=== PATIENT | male | born 1955 ===

== ENCOUNTER 2016-11-06 00:33 | Inpatient (IN) | payer MEDICAID ==
[2016-11-06 00:33] VITALS: BMI 23.5
[2016-11-06] MEDS ORDERED: Vancomycin 1 GM in Sodium Chloride 0.9% 100 ML IVPB STA (01:20)
[2016-11-06] MEDS ORDERED: Piperacillin/Tazobact 3.375 GM in Sodium Chloride 0.9% 100 ML IVPB STA (01:20)
--- NOTE | 2016-11-06 01:43 | ED PDOC ---
Upper Extremity Pain/Injury Time Seen by Provider: 11/06/16 01:13 Chief Complaint (Nursing): Upper Extremity Problem/Injury Chief Complaint (Provider): left arm pain History Per: Patient History/Exam Limitations: no limitations Onset/Duration Of Symptoms: Days (4) Current Symptoms Are (Timing): Still Present Additional Complaint(s): 61yo male with PMHx including HIV, IVDA, heroin abuse, SVT presents to the ED with c/o left arm pain x 4 days. Patient reports left forearm pain and swelling after injecting heroin into the site. States he usually snorts heroin. Denies fever, chills, n/v/d, cough, SOB, chest pain. Past Medical History Reviewed: Historical Data, Nursing Documentation, Vital Signs Vital Signs: Last Vital Signs Temp 98.7 F 11/06/16 00:51 Pulse 69 11/06/16 00:51 Resp 17 11/06/16 00:51 BP 141/85 11/06/16 00:51 Pulse Ox 98 11/06/16 00:51 - Medical History PMH: Hepatitis (C w/liver failure), Hiatal Hernia (right inguinal), HIV Denies: Diabetes, HTN, Hypercholesterolemia, Chronic Kidney Disease, Seizures , Sexually Transmitted Disease Other PMH: IVDA, heroin abuse, SVT - Surgical History Surgical History: No Surg Hx - Family History Family History: States: No Known Family Hx - Social History Current smoker - smoking cessation education provided: Yes Alcohol: > 2 Drinks/Day Drugs: Other (heroin ) - Immunization History Hx Tetanus Toxoid Vaccination: No Hx Influenza Vaccination: No Hx Pneumococcal Vaccination: No - Home Medications Home Medications: Ambulatory Orders Medication Instructions Recorded Efavirenz/Emtricitabine/Teno 1 tab PO DAILY 09/09/16 [Atripla 600 MG-200 MG-300 MG] - Allergies Allergies/Adverse Reactions: Allergies Allergy/AdvReac Type Severity Reaction Status Date / Time No Known Allergies Allergy Verified 10/02/16 10:06 Review of Systems ROS Statement: Except As Marked, All Systems Reviewed And Found Negative Constitutional: Negative for: Fever, Chills Cardiovascular: Negative for: Chest Pain Respiratory: Negative for: Cough, Shortness of Breath Gastrointestinal: Negative for: Nausea, Vomiting, Diarrhea Musculoskeletal: Positive for: Arm Pain (left ), Other (left arm swelling ) Physical Exam - Reviewed Nursing Documentation Reviewed: Yes Vital Signs Reviewed: Yes - Physical Exam Appears: Positive for: No Acute Distress. Negative for: Well (cachectic ) Head Exam: Negative for: NORMAL INSPECTION (bitemporal wasting ) Skin: Positive for: Warm, Dry Eye Exam: Positive for: Normal appearance ENT: Positive for: Normal ENT Inspection Neck: Positive for: Normal, Painless ROM, Supple Cardiovascular/Chest: Positive for: Regular Rate, Rhythm. Negative for: Murmur , Tachycardia Respiratory: Positive for: Normal Breath Sounds. Negative for: Wheezing, Respiratory Distress Gastrointestinal/Abdominal: Positive for: Normal Exam, Bowel Sounds, Soft. Negative for: Tenderness Back: Positive for: Normal Inspection Extremity: Positive for: Normal ROM, Other (left forearm: 3cm round organized abscess to volar surface that is red w/ surrounding erythema and warm and tender to palpation and indurated ). Negative for: Deformity Lymphatic: Positive for: Other (epitrochlear lymph nodes ) Neurologic/Psych: Positive for: Alert, Oriented - Laboratory Results Result Diagrams: 11/06/16 03:06 11/06/16 05:00 - ECG O2 Sat by Pulse Oximetry: 98 Pulse Ox Interpretation: Normal (RA) Medical Decision Making Medical Decision Makin: Impression: 61yo male w/ abscess and cellulitis in setting of IVDA and HIV Plan: EKG Labs Vancomycin 1gm IVPB, Zosyn 3.375gm IVPB, IVF XR left forearm, CXR blood culture Patient will be admitted for further treatment and stabilization. Case referred to family practice resident on-call. Dx: abscess/cellulitis of left forearm, HIV, IVDA fair 0228: CXR and XR left forearm show no acute disease. Scribe Attestation: Documented by Brett Mercedes acting as a scribe for Ayo Moura MD. Provider Scribe Attestation: All medical record entries made by the Scribe were at my direction and personally dictated by me. I have reviewed the chart and agree that the record accurately reflects my personal performance of the history, physical exam, medical decision making, and the department course for this patient. I have also personally directed, reviewed, and agree with the discharge instructions and disposition. Disposition - Clinical Impression Clinical Impression: Abscess of left forearm, Cellulitis of forearm, left, IV drug abuse, HIV ( human immunodeficiency virus infection) - Patient ED Disposition Is Patient to be Admitted: Yes Discussed With : Te Tineo - Disposition Disposition Time: 01:21 Condition: FAIR
[2016-11-06] MEDS ORDERED: Vancomycin 1 g Inj ONE (03:01)
[2016-11-06 03:15] LABS: BASO # 0.1 K/uL (0.0-0.2); BASO % 1.1 % (0.0-2.0); EOS # 0.2 K/uL (0.0-0.7); EOS % 2.3 % (0.0-4.0); HEMATOCRIT 39.6 % (35.0-51.0); LYMPH # 1.9 K/uL (1.0-4.3); LYMPH % 23.2 % (20.0-40.0); MEAN CELL VOLUME 84.9 fl (80.0-94.0); MEAN CORPUSCULAR HEMOGLOBIN 29.6 pg (27.0-31.0); MEAN CORPUSCULAR HGB CONC 34.8 g/dL (33.0-37.0); MEAN PLATELET VOLUME 8.6 fl (7.2-11.7); MONO # 0.7 K/uL (0.0-0.8); MONO % 8.5 % (0.0-10.0); NEUT # 5.4 K/uL (1.8-7.0); NEUT % 64.9 % (50.0-75.0); RED CELL DISTRIBUTION WIDTH 13.3 % (11.5-14.5); WHITE BLOOD COUNT 8.3 K/uL (4.8-10.8)
[2016-11-06 03:40] LABS: PARTIAL THROMBOPLASTIN TIME 28.3 SECONDS (23.3-32.5)
--- NOTE | 2016-11-06 04:16 | CP.PCM.HP ---
History of Present Illness - History of Present Illness History of Present Illness: 61 yo M w PMHx of HIV, IV Drug Abuse, Heroin abuse, HTN, and Hep C is admitted for left forearm pain w worsening abscess for four days. Despite usually snorting heroin, pt instead injected heroin into his left forearm 4 days prior to this hospital admission. Pt c/o of sharp pain that is localized to injection site, with increasing inflammation of previously mentioned injection site. However, pt denies any red gallardo leading proximally from said site. Otherwise, pt denies f/c/n/v/d/c, headaches, dizziness, chest pain, sob, dyspnea, abdominal pain, hematuria, dysuria, or other myalgias. PMD: Dr Hays As per eCW chart: PMHx: HIV February- CD4: 308 (L), CD4% 27(L), Chronic Hep C, HTN, LEFT forearm cellulitis (Sep) from IVDA, SVT (Sep) from IVDA PSHx: None Meds: Atripla 600-200-300, Vasotec 5 Allergies: NKDA FHx: None contributory SHx: Homeless, Frequent illicit drug abuse ED Course: -CBC -CMP -CXR -EKG -etoh Serum -Drug Screen -Lactic Acid -PT/INR/PTT -Blood Cx -Left Forearm XR Present on Admission - Present on Admission Any Indicators Present on Admission: No History of DVT/PE: No History of Uncontrolled Diabetes: No Urinary Catheter: No Decubitus Ulcer Present: No Review of Systems - Review of Systems Review of Systems: see HPI Past Patient History - Infectious Disease Hx of Infectious Diseases: None - Past Medical History & Family History Past Medical History?: Yes - Past Social History Smoking Status: Current Some Days Smoker - CARDIAC Hx Hypercholesterolemia: No Hx Hypertension: No - PULMONARY Hx Respiratory Disorders: No - NEUROLOGICAL Hx Seizures: No - HEENT Hx HEENT Problems: No - RENAL Hx Chronic Kidney Disease: No - ENDOCRINE/METABOLIC Hx Endocrine Disorders: No - HEMATOLOGICAL/ONCOLOGICAL Hx Human Immunodeficiency Virus (HIV): Yes - INTEGUMENTARY Hx Dermatological Problems: No - MUSCULOSKELETAL/RHEUMATOLOGICAL Hx Musculoskeletal Disorders: No - GASTROINTESTINAL Hx Gastrointestinal Disorders: No Hx Liver Failure: (Hepatitis C) - GENITOURINARY/GYNECOLOGICAL Hx Sexually Transmitted Disorders: No - PSYCHIATRIC Hx Psychophysiologic Disorder: Yes (Denies) Hx Substance Use: Yes (heroin, cocaine) - SURGICAL HISTORY Hx Surgeries: No - ANESTHESIA Hx Anesthesia: No Hx Anesthesia Reactions: No Hx Malignant Hyperthermia: No Meds Allergies/Adverse Reactions: Allergies Allergy/AdvReac Type Severity Reaction Status Date / Time No Known Allergies Allergy Verified 10/02/16 10:06 Physical Exam - Constitutional Appears: No Acute Distress, Unkempt - Head Exam Head Exam: ATRAUMATIC, NORMAL INSPECTION - Eye Exam Eye Exam: EOMI, Normal appearance - ENT Exam ENT Exam: Mucous Membranes Dry - Neck Exam Neck exam: Positive for: Full Rom. Negative for: Tenderness - Respiratory Exam Respiratory Exam: Clear to Auscultation Bilateral, NORMAL BREATHING PATTERN. absent: Rales, Wheezes - Cardiovascular Exam Cardiovascular Exam: REGULAR RHYTHM. absent: Irregular Rhythm - GI/Abdominal Exam GI & Abdominal Exam: Soft. absent: Tenderness - Extremities Exam Extremities exam: Negative for: calf tenderness Additional comments: LUE: 3-4cm organized, circular, mass/abscess w surrounding erythema; mass/ absces warm and tender to palpation - Neurological Exam Neurological exam: Alert, Oriented x3 - Skin Skin Exam: Dry, Intact, Warm Results - Vital Signs Recent Vital Signs: Last Vital Signs Temp 98.7 F 11/06/16 00:51 Pulse 69 11/06/16 00:51 Resp 17 11/06/16 00:51 BP 141/85 11/06/16 00:51 Pulse Ox 98 11/06/16 02:29 - Labs Result Diagrams: 11/06/16 03:06 11/06/16 05:00 Labs: Laboratory Results - last 24 hr 11/06/16 03:06 WBC 8.3 RBC 4.67 Hgb 13.8 Hct 39.6 MCV 84.9 MCH 29.6 MCHC 34.8 RDW 13.3 Plt Count 169 MPV 8.6 Neut % (Auto) 64.9 Lymph % (Auto) 23.2 [place] % (Auto) 8.5 Eos % (Auto) 2.3 Baso % (Auto) 1.1 Neut # 5.4 Lymph # 1.9 [place] # 0.7 Eos # 0.2 Baso # 0.1 PT 10.9 INR 1.05 APTT 28.3 Lactic Acid 0.6 L Alcohol, Quantitative < 10 Assessment & Plan - Assessment and Plan (Free Text) Plan: 61 yo M w PMHx of HIV, IV Drug Abuse, Heroin abuse, HTN, and Hep C is admitted for left forearm pain w worsening abscess for four days 1) Left forearm pain w abscess in setting of HIV -Motrin 600mg PO Q8H PRN Mild Pain -Vanco 1gm IVPB STAT x1 @ 121am --Next scheduled Vanco 1gm IVPB Q12H at 1320 -Zosyn 3.375gm IVPB STAT x1 @ 121am --Next scheduled Zosyn 3.375gm IVPB Q6H at 0730 -f/u Left Forearm XR -f/u ID Consult -f/u CMP -f/u Vanco Trough for Thurs @ Noon 2) h/o substance abuse -h/o IV heroin, cocaine, h/o 2-3 drinks/day -?reliability, will order Banana Bag in case he is incorrect about his etoh consumption -etoh screen negative -f/u for withdrawals, will re-evaluate need for PRN medications 3) HIV, not AIDS -Last CD4: 308 in February -Atripla 600-200-300 -f/u CD4 -f/u Viral Load 4) Chronic Hep C -Last Viral Load '15: 838,790 -f/u Viral Load -f/u ID Consult 5) HTN -Currently Normotensive -Vasotec 5mg PO Daily HELD, will reconsider if BPs rise 6) DVT Prophylaxis -Lovenox 40mg SC Daily at 9pm [facility]
[2016-11-06] MEDS ORDERED: Multivitamin (MVI) 10 ML, Thiamine 100 MG, Folic Acid 1 MG in Sodium Chloride 0.9% 1,00... IV ONE (04:33)
[2016-11-06 05:14] LABS: ALB/GLOB RATIO 1.1 (1.0-2.1); ALKALINE PHOSPHATASE 73 U/L (38-126); ALT/SGPT 36 U/L (21-72); AST/SGOT 41 U/L (17-59); BILIRUBIN,TOTAL 0.4 mg/dl (0.2-1.3); BLOOD UREA NITROGEN 20 mg/dl (9-20); CALCIUM 8.5 mg/dL (8.4-10.2); CARBON DIOXIDE 29 mmol/L (22-30); CHLORIDE 102 mmol/L (98-107); GFR AFRICAN-AMERICAN > 60; GLUCOSE,RANDOM 96 mg/dL (75-110); POTASSIUM 3.7 MMOL/L (3.6-5.0); SODIUM 143 mmol/l (132-148); TOTAL PROTEIN 7.2 G/DL (6.3-8.2)
[2016-11-06] MEDS: Piperacillin/Tazobact 3.375 GM in Sodium Chloride 0.9% 100 ML IVPB SCH ×3 (06:01→18:04)
[2016-11-06] MEDS: Bacitracin 500 Units/gm Oint Foilpak UD TOP SCH ×3 (09:00→16:28)
[2016-11-06] MEDS ORDERED: Patient's Own Med (Efavirenz/Emtricitabine/Teno [Atripla 600 Mg-200 Mg-300 Mg] 1 TAB) PO SCH (09:00)
--- NOTE | 2016-11-06 13:03 | RAD ---
HISTORY: admit COMPARISON: No prior. TECHNIQUE: Chest PA and lateral FINDINGS: LUNGS: The lungs are well inflated and clear. PLEURA: No significant pleural effusion identified. No pneumothorax apparent. CARDIOVASCULAR: Normal. OSSEOUS STRUCTURES: No significant abnormalities. VISUALIZED UPPER ABDOMEN: Normal. OTHER FINDINGS: None. IMPRESSION: No active pulmonary disease.
--- NOTE | 2016-11-06 13:28 | CP.PCM.CON ---
History of Present Illness - History of Present Illness History of Present Illness: Infectious Disease Consultation Note- ASked to see this patietn at the request of family practice team. HPI- Pt. is a 61 y/o homeless male with h/o HIV, Hep C, IVDU , HTN who is admitted for left arm pain, redness, swelling after he injected IV drugs 4 days ago. He denies any discharge from the site. He states the swelling has decreased since reeiving the IV abx here. He also explains he has had cellulitis /abscess in past in same arm from prior IV injections. He denies any fever or chills. PMD: Dr Hays As per eCW chart: PMHx: HIV February- CD4: 308 (L), CD4% 27(L), Chronic Hep C, HTN, LEFT forearm cellulitis (Sep) from IVDA, SVT (Sep) from IVDA PSHx: None Meds: Atripla 600-200-300, Vasotec 5 Allergies: NKDA FHx: None contributory SHx: Homeless, Frequent illicit drug abuse Review of Systems - Review of Systems Review of Systems: ROS- denies any fever or chills, denies any PANDA, denies any cough, denies any sob, denies any chest pain, denies any abd. pain, denies any n/v, denies any dysurea , denies any diarrhea left arm swelling, redness pain for past 4 days post IVDI, denies any discharge Past Patient History - Infectious Disease Hx of Infectious Diseases: None - Past Medical History & Family History Past Medical History?: Yes - Past Social History Alcohol: > 2 Drinks/Day Drugs: Other (heroin ) Home Situation {Lives}: Homeless - CARDIAC Hx Hypercholesterolemia: No Hx Hypertension: No - PULMONARY Hx Respiratory Disorders: No - NEUROLOGICAL Hx Seizures: No - HEENT Hx HEENT Problems: No - RENAL Hx Chronic Kidney Disease: No - ENDOCRINE/METABOLIC Hx Endocrine Disorders: No - HEMATOLOGICAL/ONCOLOGICAL Hx Hepatitis C: Yes Hx Human Immunodeficiency Virus (HIV): Yes - INTEGUMENTARY Hx Dermatological Problems: No - MUSCULOSKELETAL/RHEUMATOLOGICAL Hx Musculoskeletal Disorders: No - GASTROINTESTINAL Hx Gastrointestinal Disorders: No Hx Liver Failure: (Hepatitis C) - GENITOURINARY/GYNECOLOGICAL Hx Sexually Transmitted Disorders: No - PSYCHIATRIC Hx Psychophysiologic Disorder: Yes (Denies) Hx Substance Use: Yes (heroin, cocaine) - SURGICAL HISTORY Hx Surgeries: No - ANESTHESIA Hx Anesthesia: No Hx Anesthesia Reactions: No Hx Malignant Hyperthermia: No Meds Allergies/Adverse Reactions: Allergies Allergy/AdvReac Type Severity Reaction Status Date / Time No Known Allergies Allergy Verified 10/02/16 10:06 - Medications Medications: Current Medications Bacitracin (Bacitracin) 1 ea TOP TID [facility] Efavirenz (Sustiva) 600 mg PO DAILY [facility] Emtricitabine/Tenofovir (Truvada 200 Mg-300 Mg) 1 tab PO DAILY [facility] Enoxaparin Sodium (Lovenox) 40 mg SC Q24H JOAN PRN Reason: Protocol Vancomycin HCl 1 gm/ Sodium (Chloride) 250 mls @ 166.667 mls/hr IVPB Q12H JOAN Piperacillin Sod/Tazobactam (Sod 3.375 gm/ Sodium Chloride) 100 mls @ 100 mls/ hr IVPB Q6H [facility] Last Admin: 11/06/16 12:39 Dose: 100 mls/hr Ibuprofen (Motrin Tab) 600 mg PO Q8 PRN PRN Reason: Pain, Mild (1-3) Physical Exam - Constitutional Appears: No Acute Distress - Head Exam Head Exam: ATRAUMATIC - Eye Exam Eye Exam: EOMI, PERRL - Neck Exam Neck exam: Positive for: Full Rom - Respiratory Exam Respiratory Exam: Clear to Auscultation Bilateral, NORMAL BREATHING PATTERN - Cardiovascular Exam Cardiovascular Exam: RRR, +S1, +S2 - GI/Abdominal Exam GI & Abdominal Exam: Normal Bowel Sounds, Soft Additional comments: NT, ND - Extremities Exam Additional comments: left mid forearm with area of induration about 4 x 3 cm, slight erythema, not very warm to touch no discharge tender to touch no fluctuation ( hard to touch). - Neurological Exam Neurological exam: Alert, Oriented x3 Results - Vital Signs Recent Vital Signs: Last Vital Signs Temp 98.1 F 11/06/16 08:52 Pulse 65 11/06/16 08:52 Resp 20 11/06/16 08:52 BP 149/78 11/06/16 08:52 Pulse Ox 97 11/06/16 08:52 - Labs Result Diagrams: 11/06/16 03:06 11/06/16 05:00 Labs: Laboratory Results - last 24 hr 11/06/16 11/06/16 03:06 05:00 WBC 8.3 RBC 4.67 Hgb 13.8 Hct 39.6 MCV 84.9 MCH 29.6 MCHC 34.8 RDW 13.3 Plt Count 169 MPV 8.6 Neut % (Auto) 64.9 Lymph % (Auto) 23.2 [place] % (Auto) 8.5 Eos % (Auto) 2.3 Baso % (Auto) 1.1 Neut # 5.4 Lymph # 1.9 [place] # 0.7 Eos # 0.2 Baso # 0.1 PT 10.9 INR 1.05 APTT 28.3 Sodium 143 Potassium 3.7 Chloride 102 Carbon Dioxide 29 Anion Gap 16 BUN 20 Creatinine 0.8 Est GFR ( Amer) > 60 Est GFR (Non-Af Amer) > 60 Random Glucose 96 Lactic Acid 0.6 L Calcium 8.5 Total Bilirubin 0.4 AST 41 ALT 36 Alkaline Phosphatase 73 Total Protein 7.2 Albumin 3.8 Globulin 3.4 Albumin/Globulin Ratio 1.1 Alcohol, Quantitative < 10 Microbiology 02/11/16 19:00 Blood Blood Culture - Final 02/11/16 19:00 Blood Gram Stain - Final NO GROWTH AFTER 5 DAYS TEST NOT PERFORMED 02/11/16 18:30 Blood Blood Culture - Final 02/11/16 18:30 Blood Gram Stain - Final NO GROWTH AFTER 5 DAYS TEST NOT PERFORMED 02/04/16 10:55 Blood Blood Culture - Final 02/04/16 10:55 Blood Gram Stain - Final NO GROWTH AFTER 5 DAYS TEST NOT PERFORMED 11/12/15 Unknown Abscess - Forearm Gram Stain - Final 11/12/15 Unknown Abscess - Forearm Wound Culture - Final Strep Intermedius/Milleri 09/09/16 00:28 Blood-Venous Blood Culture - Final 09/09/16 00:28 Blood-Venous Gram Stain - Final NO GROWTH AFTER 5 DAYS TEST NOT PERFORMED 09/09/16 00:28 Blood-Venous Blood Culture - Final 09/09/16 00:28 Blood-Venous Gram Stain - Final NO GROWTH AFTER 5 DAYS TEST NOT PERFORMED 08/07/16 21:20 Blood-Venous Blood Culture - Final 08/07/16 21:20 Blood-Venous Gram Stain - Final NO GROWTH AFTER 5 DAYS TEST NOT PERFORMED 08/07/16 21:10 Blood-Venous Blood Culture - Final 08/07/16 21:10 Blood-Venous Gram Stain - Final NO GROWTH AFTER 5 DAYS TEST NOT PERFORMED Accession No. : [id number] Patient Name / ID : MYRTLE MCGRAW / [id number] Exam Date : 11/06/2016 01:34:57 ( Approved ) Study Comment : Sex / Age : M / 61Y Creator : Jo Ann Buck MD Dictator : Jo Ann Buck MD Medical Practice Manager : Printing Plate Clerk : Jo Ann Buck MD Approver2 : Report Date : 11/06/2016 13:26:18 My Comment : PROCEDURE: Radiographs of the Left Forearm HISTORY: forearm abscess/cellulitis COMPARISON: None available. TECHNIQUE: Frontal and lateral views obtained. FINDINGS: BONES: There is no acute fracture or bone destruction. Bone mineralization is normal. JOINT SPACES: Bone alignment is normal. The joint spaces are preserved. OTHER FINDINGS: There is mild soft tissue swelling in the ventral mid forearm. IMPRESSION: No evidence of osteomyelitis. Focal soft tissue swelling in the ventral mid forearm.Accession No. : [id number] Patient Name / ID : MYRTLE MCGRAW / [id number] Exam Date : 11/06/2016 01:36:02 ( Approved ) Study Comment : Sex / Age : M / 61Y Creator : Jo Ann Buck MD Dictator : Jo Ann Buck MD Medical Practice Manager : Printing Plate Clerk : Jo Ann Buck MD Approver2 : Report Date : 11/06/2016 13:02:18 My Comment : HISTORY: admit COMPARISON: No prior. TECHNIQUE: Chest PA and lateral FINDINGS: LUNGS: The lungs are well inflated and clear. PLEURA: No significant pleural effusion identified. No pneumothorax apparent. CARDIOVASCULAR: Normal. OSSEOUS STRUCTURES: No significant abnormalities. VISUALIZED UPPER ABDOMEN: Normal. OTHER FINDINGS: None. IMPRESSION: No active pulmonary disease. Assessment & Plan (1) Abscess of left forearm Status: Acute (2) HIV (human immunodeficiency virus infection) Status: Acute (3) IV drug abuse Status: Chronic - Assessment and Plan (Free Text) Assessment: A/P- 61 y/o male with H/o HIV on atripla , h/o chronic hep C, HTN , IVDU who presented with left forearm abscess post IVDU. not septic. afebrile normal wbc count.forearm xray- as per report no evidence of OM. cxr- neg as per report. plan- check blood cx x 2. advise to apply warm compress to the left forearm region to make the induration softer and resolve the inflammation. Keep left forearm elevated. advise to continue with IV vancomycin to cover for staph and strep. keep trough <15. HIV care as per his Doc , continue atripla. All above d/w Dr.Piere Morton and the patient. Thank you for allowing me to take part in the care of this patient.
[2016-11-06] MEDS: Enoxaparin 40 mg Syringe SC SCH ×2 (22:07→22:10)
[2016-11-07] MEDS: Piperacillin/Tazobact 3.375 GM in Sodium Chloride 0.9% 100 ML IVPB SCH ×2 (00:03→05:41)
[2016-11-07 07:37] LABS: HEMATOCRIT 43.5 % (35.0-51.0); MEAN CELL VOLUME 84.9 fl (80.0-94.0); MEAN CORPUSCULAR HEMOGLOBIN 29.4 pg (27.0-31.0); MEAN CORPUSCULAR HGB CONC 34.6 g/dL (33.0-37.0); RED CELL DISTRIBUTION WIDTH 13.4 % (11.5-14.5); WHITE BLOOD COUNT 6.9 K/uL (4.8-10.8)
[2016-11-07 07:38] VITALS: TEMP 97.9; O2SAT 99
[2016-11-07 07:59] LABS: BLOOD UREA NITROGEN 14 mg/dl (9-20); CALCIUM 8.7 mg/dL (8.4-10.2); CARBON DIOXIDE 25 mmol/L (22-30); CHLORIDE 104 mmol/L (98-107); GFR AFRICAN-AMERICAN > 60; GLUCOSE,RANDOM 110 mg/dL (75-110); POTASSIUM 4.1 MMOL/L (3.6-5.0); SODIUM 141 mmol/l (132-148)
[2016-11-07 08:33] VITALS: BP 172/95; PULSE 66; RESP 18
[2016-11-07] MEDS ORDERED: Emtricitabine-Tenofovir 200 mg-300 mg Tab PO SCH (09:00)
[2016-11-07] MEDS: Bacitracin 500 Units/gm Oint Foilpak UD TOP SCH (09:57)
--- NOTE | 2016-11-07 15:12 | CP.PCM.DIS ---
Provider - Provider Date of Admission: 11/06/16 01:21 Attending physician: Dipti Calixto MD Primary care physician: Mark Rosa MD Time Spent in preparation of Discharge (in minutes): 30 Diagnosis - Discharge Diagnosis (1) Cellulitis and abscess of other specified site Status: Acute Comment: Left forearm Hospital Course - Lab Results Lab Results: Micro Results 11/06/16 03:30 Blood Blood Culture - Preliminary NO GROWTH AFTER 24 HOURS 11/06/16 02:58 Blood Blood Culture - Preliminary NO GROWTH AFTER 24 HOURS Most Recent Lab Values WBC 6.9 K/uL (4.8-10.8) 11/07/16 06:10 RBC 5.13 Mil/uL (4.40-5.90) 11/07/16 06:10 Hgb 15.1 g/dL (12.0-18.0) 11/07/16 06:10 Hct 43.5 % (35.0-51.0) 11/07/16 06:10 MCV 84.9 fl (80.0-94.0) 11/07/16 06:10 MCH 29.4 pg (27.0-31.0) 11/07/16 06:10 MCHC 34.6 g/dL (33.0-37.0) 11/07/16 06:10 RDW 13.4 % (11.5-14.5) 11/07/16 06:10 Plt Count 171 K/uL (130-400) 11/07/16 06:10 MPV 8.6 fl (7.2-11.7) 11/06/16 03:06 Neut % (Auto) 64.9 % (50.0-75.0) 11/06/16 03:06 Lymph % (Auto) 23.2 % (20.0-40.0) 11/06/16 03:06 [place] % (Auto) 8.5 % (0.0-10.0) 11/06/16 03:06 Eos % (Auto) 2.3 % (0.0-4.0) 11/06/16 03:06 Baso % (Auto) 1.1 % (0.0-2.0) 11/06/16 03:06 Neut # 5.4 K/uL (1.8-7.0) 11/06/16 03:06 Lymph # 1.9 K/uL (1.0-4.3) 11/06/16 03:06 [place] # 0.7 K/uL (0.0-0.8) 11/06/16 03:06 Eos # 0.2 K/uL (0.0-0.7) 11/06/16 03:06 Baso # 0.1 K/uL (0.0-0.2) 11/06/16 03:06 PT 10.9 SECONDS (9.6-11.2) 11/06/16 03:06 INR 1.05 (0.92-1.08) 11/06/16 03:06 APTT 28.3 SECONDS (23.3-32.5) 11/06/16 03:06 Sodium 141 mmol/l (132-148) 11/07/16 06:10 Potassium 4.1 MMOL/L (3.6-5.0) 11/07/16 06:10 Chloride 104 mmol/L (98-107) 11/07/16 06:10 Carbon Dioxide 25 mmol/L (22-30) 11/07/16 06:10 Anion Gap 16 (10-20) 11/07/16 06:10 BUN 14 mg/dl (9-20) 11/07/16 06:10 Creatinine 0.8 mg/dL (0.8-1.5) 11/07/16 06:10 Est GFR ( Amer) > 60 11/07/16 06:10 Est GFR (Non-Af Amer) > 60 11/07/16 06:10 Random Glucose 110 mg/dL (75-110) 11/07/16 06:10 Lactic Acid 0.6 MMOL/L (0.7-2.1) L 11/06/16 03:06 Calcium 8.7 mg/dL (8.4-10.2) 11/07/16 06:10 Total Bilirubin 0.4 mg/dl (0.2-1.3) 11/06/16 05:00 AST 41 U/L (17-59) 11/06/16 05:00 ALT 36 U/L (21-72) 11/06/16 05:00 Alkaline Phosphatase 73 U/L (38-126) 11/06/16 05:00 Total Protein 7.2 G/DL (6.3-8.2) 11/06/16 05:00 Albumin 3.8 g/dL (3.5-5.0) 11/06/16 05:00 Globulin 3.4 gm/dL (2.2-3.9) 11/06/16 05:00 Albumin/Globulin Ratio 1.1 (1.0-2.1) 11/06/16 05:00 Urine Opiates Screen Positive (NEGATIVE) H 11/06/16 02:27 Urine Methadone Screen Negative (NEGATIVE) 11/06/16 02:27 Ur Barbiturates Screen Negative (NEGATIVE) 11/06/16 02:27 Ur Phencyclidine Scrn Negative (NEGATIVE) 11/06/16 02:27 Ur Amphetamines Screen Negative (NEGATIVE) 11/06/16 02:27 U Benzodiazepines Scrn Negative (NEGATIVE) 11/06/16 02:27 U Oth Cocaine Metabols Positive (NEGATIVE) H 11/06/16 02:27 U Cannabinoids Screen Negative (NEGATIVE) 11/06/16 02:27 Alcohol, Quantitative < 10 mg/dl (0-10) 11/06/16 03:06 Absolute Lymphs (Flow) 1595 Cells/mcL (850-3900) 11/06/16 07:30 % CD4 Cells 27 Percent (30-61) L 11/06/16 07:30 Absolute CD4 Count 429 Cells/mcL (490-1740) L 11/06/16 07:30 T-Help/Suppress Ratio 0.56 Ratio (0.86-5.00) L 11/06/16 07:30 % CD8 Cells 48 Percent (12-42) H 11/06/16 07:30 Absolute CD8 Count 761 Cells/mcL (180-1170) 11/06/16 07:30 Hepatitis C RNA TNP 11/06/16 07:30 HCV RNA Quant (PCR) TNP 11/06/16 07:30 - Hospital Course Hospital Course: The patient is a 61 y/o man w PMHx of asymptomatic HIV (not AIDS), IV Drug Abuse , Heroin abuse, HTN, and Hep C is admitted for left forearm pain w/ worsening abscess for four days prior to admission. Despite usually snorting heroin, patient instead injected heroin into his left forearm 4 days prior to this hospital admission. Patient c/o of sharp pain that is localized to injection site, with increasing inflammation of previously mentioned injection site. However, patient denies any red gallardo leading proximally from said site. The patient had CBC, CMP, CXR, EKG, etoh Serum, drug screen, lactic acid, PT/INR/PTT , Blood Cx, and Left Forearm XR done in ED. Patient was given vancomycin 1 gm IV x1 and zosyn 3.375 gm IV x1 in ED. Patient was sent to [facility]. Patient was continued on IV vanc Q12h and zosyn Q6h. The abscess was erythematous, indurated, mildly tender, but not fluctuant or draining. The abscess was improved this morning upon inspection. The patient's BP was elevated this morning. However, the patient left and signed AMA without giving the family medicine team a chance to discuss the risks of leaving before completion of treatment and the risks of uncontrolled blood pressures. The patient left the floor before the family medicine team was contacted. Patient signed AMA in presence of his nurse. - Date & Time of H&P Date of H&P: 11/06/16 Time of H&P: 04:13 Discharge Exam - Head Exam Head Exam: ATRAUMATIC - Respiratory Exam Respiratory Exam: Clear to PA & Lateral, NORMAL BREATHING PATTERN. absent: Accessory Muscle Use, Chest Wall Tenderness, Decreased Breath Sounds, Prolonged Expiratory Phase, Rales, Rhonchi, Wheezes, Respiratory Distress, Stridor - Cardiovascular Exam Cardiovascular Exam: REGULAR RHYTHM. absent: Tachycardia - GI/Abdominal Exam GI & Abdominal Exam: Normal Bowel Sounds, Soft. absent: Distended, Tenderness - Extremities Exam Additional comments: 2-3cm organized, circular, mass/abscess w/ surrounding erythema less than yesterday; mass/abscess warm and mildly tender to palpation - Neurological Exam Neurological exam: Alert, Normal Gait, Oriented x3 - Skin Skin Exam: Dry, Warm Additional comments: 2-3cm organized, circular, mass/abscess w/ surrounding erythema less than yesterday; mass/abscess warm and mildly tender to palpation, no streaking Discharge Plan - Follow Up Plan Condition: FAIR Disposition: AGAINST MEDICAL ADVICE Referrals: Mark Rosa MD [Primary Care Provider] - Clinical Quality Measures - Date & Time of Discharge Summary Date of Discharge Summary: 11/07/16 Time of Discharge Summary: 15:16
== END 2016-11-07 10:20 | disposition left against medical advice (07) | DRG 713 ==
LOC: H.ER 00:33 → H.ERHOLD 01:21 → H.MEDSURG1 04:50
PROVIDERS: ADMIT Family Medicine Geriatric Medicine; ATTEND Family Medicine Geriatric Medicine
DX: L03.114 Cellulitis of left upper limb (principal); L02.414 Cutaneous abscess of left upper limb; Z21 Asymptomatic human immunodeficiency virus [HIV] infection status; R64 Cachexia; B18.2 Chronic viral hepatitis C; K72.90 Hepatic failure, unspecified without coma; F11.10 Opioid abuse, uncomplicated; I10 Essential (primary) hypertension; K44.9 Diaphragmatic hernia without obstruction or gangrene; Z59.0 Homelessness

== ENCOUNTER 2017-07-20 02:18 | Emergency (ER) | payer MEDICAID ==
[2017-07-20 02:19] VITALS: BMI 23.5
[2017-07-20 03:07] VITALS: O2SAT 99
[2017-07-20] MEDS ORDERED: Iohexol 240 (50 ml) PO ONE (03:11)
[2017-07-20] MEDS ORDERED: Iohexol 240 (50 ml) ONE (03:38)
--- NOTE | 2017-07-20 04:04 | ED PDOC ---
HPI: General Adult Time Seen by Provider: 07/20/17 03:02 Chief Complaint (Nursing): Abdominal Pain Chief Complaint (Provider): Right inguinal hernia pain History Per: Patient History/Exam Limitations: no limitations Additional History Per: Patient Additional Complaint(s): 62yo male, past medical history of HIV, IVDA, inguinal hernia, presents with complaints of right inguinal hernia pain, right testicular swelling. Patient states normally he is able to reduce his hernia but has not been able to this instance. patient states he had 1 episode of vomiting earlier today. He denies any fever, cough, shortness of breath chest pain. No other complaints. Past Medical History Reviewed: Historical Data, Nursing Documentation, Vital Signs Vital Signs: Last Vital Signs Temp 98.5 F 07/20/17 08:36 Pulse 52 L 07/20/17 10:00 Resp 19 07/20/17 10:00 BP 132/70 07/20/17 10:00 Pulse Ox 99 07/20/17 10:00 - Medical History PMH: Hepatitis (C w/liver failure), Hiatal Hernia (right inguinal), HIV Denies: Diabetes, HTN, Hypercholesterolemia, Chronic Kidney Disease, Seizures , Sexually Transmitted Disease - Surgical History Surgical History: No Surg Hx - Family History Family History: States: Unknown Family Hx - Social History Alcohol: < 2 Drinks/Day Drugs: Opiates - Immunization History Hx Tetanus Toxoid Vaccination: No Hx Influenza Vaccination: No Hx Pneumococcal Vaccination: No - Home Medications Home Medications: Ambulatory Orders Medication Instructions Recorded Efavirenz/Emtricitabine/Teno 1 tab PO DAILY 09/09/16 [Atripla 600 MG-200 MG-300 MG] - Allergies Allergies/Adverse Reactions: Allergies Allergy/AdvReac Type Severity Reaction Status Date / Time No Known Allergies Allergy Verified 10/02/16 10:06 Review of Systems ROS Statement: Except As Marked, All Systems Reviewed And Found Negative Gastrointestinal: Positive for: Vomiting Genitourinary Male: Positive for: Other (right inguinal hernia pain) Physical Exam - Reviewed Nursing Documentation Reviewed: Yes Vital Signs Reviewed: Yes - Physical Exam Appears: Positive for: Uncomfortable Head Exam: Positive for: ATRAUMATIC, NORMAL INSPECTION, NORMOCEPHALIC Skin: Positive for: Normal Color Eye Exam: Positive for: Normal appearance Neck: Positive for: Supple Cardiovascular/Chest: Positive for: Regular Rate, Rhythm Respiratory: Positive for: Normal Breath Sounds. Negative for: Respiratory Distress Gastrointestinal/Abdominal: Positive for: Normal Exam, Soft. Negative for: Tenderness Male Genital Exam: Positive for: hernia mass (large, irreducible right inguinal hernia, tender to palpation.) - Laboratory Results Result Diagrams: 07/20/17 04:00 07/20/17 04:00 - ECG O2 Sat by Pulse Oximetry: 99 (RA) Pulse Ox Interpretation: Normal Medical Decision Making Medical Decision Making: Impression: Inguinal hernia Plan: -- Labs -- CT AP w/ IV & PO Contrast -- IV Toradol Reassess Scribe Attestation: Documented by Yolie Lorenzana acting as a scribe for Ayo Moura MD. Provider Attestation: All medical record entries made by the Scribe were at my direction and personally dictated by me. I have reviewed the chart and agree that the record accurately reflects my personal performance of the history, physical exam, medical decision making, and the department course for this patient. I have also personally directed, reviewed, and agree with the discharge instructions and disposition. Disposition - Clinical Impression Clinical Impression: Inguinal hernia, H/O human immunodeficiency virus infection - Disposition Disposition Time: 07:37 Condition: GUARDED Instructions: Inguinal Hernia (ED), Against Medical Advice (ED) Forms: IZEA (Azeri)
[2017-07-20 04:20] LABS: BASO # 0.1 K/uL (0.0-0.2); BASO % 1.2 % (0.0-2.0); EOS # 0.1 K/uL (0.0-0.7); EOS % 1.1 % (0.0-4.0); HEMATOCRIT 39.2 % (35.0-51.0); LYMPH # 1.7 K/uL (1.0-4.3); LYMPH % 18.1 % (20.0-40.0); MEAN CORPUSCULAR HEMOGLOBIN 29.7 pg (27.0-31.0); MEAN CORPUSCULAR HGB CONC 34.5 g/dL (33.0-37.0); MEAN PLATELET VOLUME 8.9 fl (7.2-11.7); MONO # 0.9 K/uL (0.0-0.8); MONO % 9.3 % (0.0-10.0); NEUT # 6.7 K/uL (1.8-7.0); NEUT % 70.3 % (50.0-75.0); NRBC % 0.2 % (0.0-0.0); RED CELL DISTRIBUTION WIDTH 12.9 % (11.5-14.5); WHITE BLOOD COUNT 9.6 K/uL (4.8-10.8)
[2017-07-20 04:27] LABS: RBC URINE < 1 /hpf (0-3); URINE BILIRUBIN NEGATIVE (NEGATIVE); URINE BLOOD NEGATIVE (NEGATIVE); URINE COLOR YELLOW (YELLOW); URINE GLUCOSE (UA) NEG (Normal); URINE KETONE NEGATIVE (NEGATIVE); URINE LEUKOCYTE ESTERASE NEG Leu/uL (Negative); URINE PROTEIN 30 mg/dL (NEGATIVE); WBC URINE 1 /hpf (0-5)
[2017-07-20 04:34] LABS: ALB/GLOB RATIO 1.2 (1.0-2.1); ALKALINE PHOSPHATASE 159 U/L (38-126); ALT/SGPT 88 U/L (21-72); AST/SGOT 73 U/L (17-59); BILIRUBIN,TOTAL 0.7 mg/dl (0.2-1.3); BLOOD UREA NITROGEN 23 mg/dl (9-20); CALCIUM 8.7 mg/dL (8.4-10.2); CARBON DIOXIDE 32 mmol/L (22-30); CHLORIDE 102 mmol/L (98-107); GFR AFRICAN-AMERICAN > 60; GLUCOSE,RANDOM 106 mg/dL (75-110); POTASSIUM 4.3 MMOL/L (3.6-5.0); SODIUM 139 mmol/l (132-148); TOTAL PROTEIN 7.3 G/DL (6.3-8.2)
[2017-07-20 04:42] LABS: PARTIAL THROMBOPLASTIN TIME 33.2 Seconds (25.6-37.1)
[2017-07-20] MEDS ORDERED: Iohexol 300 100 ML IJ ONE (05:41)
--- NOTE | 2017-07-20 07:08 | ED PDOC ---
- Laboratory Results Result Diagrams: 07/20/17 04:00 07/20/17 04:00 - ECG O2 Sat by Pulse Oximetry: 99 (RA) Medical Decision Making Medical Decision Makinam pending CT abd pelv CT abd/pelv results: FINDINGS: Lower thorax: Stable 3-4 mm right pulmonary nodule seen on image 8 series 2 which was seen on prior examination on image 3 series 5. There is 4 mm lingular noncalcified pulmonary nodule which is too small to characterize. ACR White Paper guidelines (MacMahon, et al. Radiology 2017; 284(1):228-43) suggest the following. For low-risk patients, no follow-up is necessary. For high- risk patients (smoking history or other known risk factors) an optional chest CT at 12 months could be performed. Bibasilar nonspecific infiltrates are present , consistent with atelectasis or pneumonia. Small hiatal hernia. Cardiomegaly. There is interval resolution of lingular consolidation. ABDOMEN: Liver: There are multiple liver hypodensities that are not characterized on this examination. Gallbladder and bile ducts: Partially contracted gallbladder with gallbladder wall thickening and pericholecystic fluid.If clinically warranted , a right upper quadrant ultrasound and correlation with LFTs may be helpful for further assessment. Pancreas: Unremarkable. No mass. No ductal dilation. Spleen: Left upper quadrant splenule. Adrenals: Unremarkable. No mass. Kidneys and ureters: Unremarkable. No solid mass. No hydronephrosis. Stomach and bowel: There is right inguinal scrotal herniation of bowel with wall thickening seen on image 143 series 3 there is fluid surrounding the herniated portion of the bowel and surrounding it. Correlation with clinical data is recommended if incarcerated right inguinal hernia is clinically suspected. This was seen on prior examination. Large amount of stool in the colon. There is moderate distention of the rectum with stool.Correlation with clinical data is recommended if fecal impaction or fecal retention is clinically suspected. Correlation with patient's clinical history of constipation is recommended. Nonspecific gastric thickening likely due to under distention versus nonspecific gastritis. There are nonspecific thickening of stomach, small bowel loops. These findings can represent ileus versus gastroenteritis/enteritis versus slow transit versus peristalsis. Appendix: The appendix is not seen. There is lack of intra-abdominal fat. PELVIS: Bladder: Partially distended bladder with bladder wall thickening. Correlation with urinalysis is recommended only if clinical cystitis is suspected. Bladder wall calcification seen on image 150 series 3. Reproductive: Borderline prominence of prostate gland with calcifications. ABDOMEN and PELVIS: Intraperitoneal space: Unremarkable. No free air. No significant fluid collection. Bones/joints: No acute fracture. No dislocation. Soft tissues: See above. Vasculature: Unremarkable. No abdominal aortic aneurysm. Lymph nodes: Unremarkable. No enlarged lymph nodes. IMPRESSION: 1. There is right inguinal scrotal herniation of bowel with wall thickening seen on image 143 series 3 there is fluid surrounding the herniated portion of the bowel and surrounding it. Correlation with clinical data is recommended if incarcerated right inguinal hernia is clinically suspected. This was seen on prior examination. 2. Partially contracted gallbladder with gallbladder wall thickening and pericholecystic fluid.If clinically warranted, a right upper quadrant ultrasound and correlation with LFTs may be helpful for further assessment. 3. There is 4 mm lingular noncalcified pulmonary nodule which is too small to characterize. 3-4 mm stable noncalcified right lower lobe pulmonary nodule. ACR White Paper guidelines (MacMahon, et al. Radiology 2017; 284(1):228-43) suggest the following. For low-risk patients, no follow-up is necessary. For high-risk patients (smoking history or other known risk factors) an optional chest CT at 12 months could be performed. 4. Large amount of stool in the colon. There is moderate distention of the rectum with stool.Correlation with clinical data is recommended if fecal impaction or fecal retention is clinically suspected. Correlation with patient's clinical history of constipation is recommended. CRITICAL RESULT: The study was personally discussed on the telephone with [Dr. Moura [facility]] on 07/20/2017 8:00 AM EST. The results were understood and acknowledged. Dictated By: REUBEN LEO Dictated Date/Time: 07/20/17802 Signed By: REUBEN LEO MD Date Signed: 07/20/17802 Transcribed By: GAMALIEL Transcribe Date/Time: 07/20/17802 SUSAN/CHEVY 08:35 Spoke to president and chief operating officer regarding CT report. Will see patient in ER. Scribe Attestation: Documented by Magaly Brooks, acting as a scribe for David Spears DO. Provider Scribe Attestation: All medical record entries made by the Scribe were at my direction and personally dictated by me. I have reviewed the chart and agree that the record accurately reflects my personal performance of the history, physical exam, medical decision making, and the department course for this patient. I have also personally directed, reviewed, and agree with the discharge instructions and disposition. Disposition - Clinical Impression Clinical Impression: Inguinal hernia, H/O human immunodeficiency virus infection - POA Present On Arrival: None - Disposition Disposition: AGAINST MEDICAL ADVICE Disposition Time: 09:54 Instructions: Against Medical Advice (ED), Inguinal Hernia (ED) Forms: YOOSE (Portuguese) Against Medical Advice - AMA Patient Left Against Medical Advice: The patient declines admission to the hospital and wishes to leave the Emergency Department. This action is against my medical advice. This decision was made with informed refusal. The patient was told that admission to the hospital is necessary. Explanation of the reasons why were discussed. The risks of leaving were explained to the patient and include, but are not limited to, worsening of known or currently unknown conditions, permanent disability and from undiagnosed or untreated conditions. The patient has the capacity to make this informed decision and understands my explanation of the current medical problem and risks of leaving. The patient voluntarily accepts these risks and signed an AMA form documenting our conversation. The patient was given the opportunity to ask questions and reconsider. The patient was encouraged to return to the Emergency Department at any time for further care. Patient understood he has a hernia which needs surgical attention. He is AAOx3 and understands risks of leaving include rupture of intestines, infection, chonic pain or . Signed and witnessed AMA.
--- NOTE | 2017-07-20 08:03 | CT ---
EXAM: CT Abdomen and Pelvis With Intravenous Contrast CLINICAL HISTORY: 62 years old, male; Pain; Abdominal pain; Localized; Lower; Additional info: Right inguinal hernia TECHNIQUE: Axial computed tomography images of the abdomen and pelvis with intravenous contrast. All CT scans at this facility use one or more dose reduction techniques, viz.: automated exposure control; ma/kV adjustment per patient size (including targeted exams where dose is matched to indication; i.e. head); or iterative reconstruction technique. 573 images are submitted. Oral contrast was administered. Axial images are submitted there are windows. Coronal and sagittal reformatted images were created and reviewed. CONTRAST: 95 mL of omnipaque administered intravenously. COMPARISON: CT - ABD PELVIS PO IV CONTRAST 2016-09-08 22:41 FINDINGS: Lower thorax: Stable 3-4 mm right pulmonary nodule seen on image 8 series 2 which was seen on prior examination on image 3 series 5. There is 4 mm lingular noncalcified pulmonary nodule which is too small to characterize. ACR White Paper guidelines (MacMahon, et al. Radiology 2017; 284(1):228-43) suggest the following. For low-risk patients, no follow-up is necessary. For high-risk patients (smoking history or other known risk factors) an optional chest CT at 12 months could be performed. Bibasilar nonspecific infiltrates are present, consistent with atelectasis or pneumonia. Small hiatal hernia. Cardiomegaly. There is interval resolution of lingular consolidation. ABDOMEN: Liver: There are multiple liver hypodensities that are not characterized on this examination. Gallbladder and bile ducts: Partially contracted gallbladder with gallbladder wall thickening and pericholecystic fluid.If clinically warranted, a right upper quadrant ultrasound and correlation with LFTs may be helpful for further assessment. Pancreas: Unremarkable. No mass. No ductal dilation. Spleen: Left upper quadrant splenule. Adrenals: Unremarkable. No mass. Kidneys and ureters: Unremarkable. No solid mass. No hydronephrosis. Stomach and bowel: There is right inguinal scrotal herniation of bowel with wall thickening seen on image 143 series 3 there is fluid surrounding the herniated portion of the bowel and surrounding it. Correlation with clinical data is recommended if incarcerated right inguinal hernia is clinically suspected. This was seen on prior examination. Large amount of stool in the colon. There is moderate distention of the rectum with stool.Correlation with clinical data is recommended if fecal impaction or fecal retention is clinically suspected. Correlation with patient's clinical history of constipation is recommended. Nonspecific gastric thickening likely due to under distention versus nonspecific gastritis. There are nonspecific thickening of stomach, small bowel loops. These findings can represent ileus versus gastroenteritis/enteritis versus slow transit versus peristalsis. Appendix: The appendix is not seen. There is lack of intra-abdominal fat. PELVIS: Bladder: Partially distended bladder with bladder wall thickening. Correlation with urinalysis is recommended only if clinical cystitis is suspected. Bladder wall calcification seen on image 150 series 3. Reproductive: Borderline prominence of prostate gland with calcifications. ABDOMEN and PELVIS: Intraperitoneal space: Unremarkable. No free air. No significant fluid collection. Bones/joints: No acute fracture. No dislocation. Soft tissues: See above. Vasculature: Unremarkable. No abdominal aortic aneurysm. Lymph nodes: Unremarkable. No enlarged lymph nodes. IMPRESSION: 1. There is right inguinal scrotal herniation of bowel with wall thickening seen on image 143 series 3 there is fluid surrounding the herniated portion of the bowel and surrounding it. Correlation with clinical data is recommended if incarcerated right inguinal hernia is clinically suspected. This was seen on prior examination. 2. Partially contracted gallbladder with gallbladder wall thickening and pericholecystic fluid.If clinically warranted, a right upper quadrant ultrasound and correlation with LFTs may be helpful for further assessment. 3. There is 4 mm lingular noncalcified pulmonary nodule which is too small to characterize. 3-4 mm stable noncalcified right lower lobe pulmonary nodule. ACR White Paper guidelines (MacMahon, et al. Radiology 2017; 284(1):228-43) suggest the following. For low-risk patients, no follow-up is necessary. For high-risk patients (smoking history or other known risk factors) an optional chest CT at 12 months could be performed. 4. Large amount of stool in the colon. There is moderate distention of the rectum with stool.Correlation with clinical data is recommended if fecal impaction or fecal retention is clinically suspected. Correlation with patient's clinical history of constipation is recommended. CRITICAL RESULT: The study was personally discussed on the telephone with [Ayo Chandra] on 07/20/2017 8:00 AM EST. The results were understood and acknowledged.
[2017-07-20 08:37] VITALS: TEMP 98.5
[2017-07-20 10:01] VITALS: BP 132/70; PULSE 52; RESP 19
--- NOTE | 2017-07-20 17:12 | CARD ---
APPROVED REPORT EKG Measurement Heart [id number] <Conclusion> Marked sinus bradycardia Left axis deviation Abnormal ECG
== END 2017-07-20 10:01 | disposition left against medical advice (07) ==
LOC: H.ER 02:18
DX: K40.90 Unilateral inguinal hernia, without obstruction or gangrene, not specified as recurrent (principal); Z21 Asymptomatic human immunodeficiency virus [HIV] infection status
CPT/HCPCS: 74177; 80053; 81003; 83605; 85025; 85610; 85730; 93005; 96374; 99284; J1885; Q9966; Q9967

== ENCOUNTER 2017-11-09 22:59 | Inpatient (IN) | payer MEDICAID ==
[2017-11-09 23:04] VITALS: BMI 21.9
--- NOTE | 2017-11-09 23:13 | ED PDOC ---
Upper Extremity Pain/Injury Time Seen by Provider: 11/09/17 23:11 Chief Complaint (Nursing): Upper Extremity Problem/Injury Chief Complaint (Provider): Abscess - Left forearm History Per: Patient History/Exam Limitations: no limitations Onset/Duration Of Symptoms: Days Quality: Sharp Additional Complaint(s): 62 yo male with history of HTN (not taking medications), HIV, hepatitis presents with abscess of the left forearm x 3 days. Pt states he has an infection at a "bad heroine site". Pt states the pain and redness is getting worse. Pt has had similar in the past. Past Medical History Reviewed: Historical Data, Nursing Documentation, Vital Signs Vital Signs: Last Vital Signs Temp 97.9 F 11/09/17 23:04 Pulse 120 H 11/09/17 23:04 Resp 16 11/09/17 23:04 BP 180/109 H 11/09/17 23:04 Pulse Ox 100 11/09/17 23:04 - Medical History PMH: Hepatitis (C w/liver failure), Hiatal Hernia (right inguinal), HIV, HTN Denies: Diabetes, Hypercholesterolemia, Chronic Kidney Disease, Seizures, Sexually Transmitted Disease - Family History Family History: States: Unknown Family Hx - Living Arrangements Living Arrangements: Other - Social History Drugs: Opiates - Immunization History Hx Tetanus Toxoid Vaccination: No Hx Influenza Vaccination: No Hx Pneumococcal Vaccination: No - Home Medications Home Medications: Ambulatory Orders Medication Instructions Recorded Efavirenz/Emtricitabine/Teno 1 tab PO DAILY 09/09/16 [Atripla 600 MG-200 MG-300 MG] - Allergies Allergies/Adverse Reactions: Allergies Allergy/AdvReac Type Severity Reaction Status Date / Time No Known Allergies Allergy Verified 11/09/17 23:03 Review of Systems ROS Statement: Except As Marked, All Systems Reviewed And Found Negative Constitutional: Negative for: Fever, Chills Skin: Positive for: Other Physical Exam - Reviewed Nursing Documentation Reviewed: Yes Vital Signs Reviewed: Yes - Physical Exam Appears: Positive for: Well, Non-toxic, No Acute Distress Head Exam: Positive for: ATRAUMATIC, NORMAL INSPECTION, NORMOCEPHALIC Skin: Positive for: Warm. Negative for: Normal Color (4 cm fluctulant abscess of the left posterior forearm, suroudning erythema extending around lower arm) Eye Exam: Positive for: Normal appearance ENT: Positive for: Normal ENT Inspection Neck: Positive for: Normal, Painless ROM Cardiovascular/Chest: Positive for: Regular Rate, Rhythm Respiratory: Positive for: Normal Breath Sounds. Negative for: Accessory Muscle Use, Respiratory Distress Back: Positive for: Normal Inspection Extremity: Positive for: Normal ROM Neurologic/Psych: Positive for: Alert, Oriented - ECG O2 Sat by Pulse Oximetry: 100 Medical Decision Making Medical Decision Making: Discussed with Motion Picture Projectionist Dr. Chand. Labs, blood cultures and antibiotic ordered. Regional Wildlife Agent called. Disposition - Clinical Impression Clinical Impression: Abscess of forearm, left, Cellulitis, IV drug abuse - Patient ED Disposition Is Patient to be Admitted: No - Disposition Disposition: Routine/Home Disposition Time: 23:55 Condition: STABLE - Pt Status Changed To: Hospital Disposition Of: Observation - Admit Certification Admit to Inpatient:: M/S - POA Present On Arrival: None
[2017-11-09] MEDS ORDERED: Sodium Chloride 0.9% 1,000 ML IV STA (23:14)
[2017-11-09] MEDS ORDERED: Piperacillin/Tazobact 3.375 GM in Sodium Chloride 0.9% 100 ML IV ONE (23:26)
[2017-11-09] MEDS ORDERED: Piperacillin/Tazobact 3.375 gm Inj IVPB ONE (23:42)
[2017-11-09 23:48] LABS: VENOUS BLOOD GAS BASE EXCESS 7.1 mmol/L (0.0-2.0); VENOUS BLOOD GAS PCO2 45 mmHg (40-60); VENOUS BLOOD GAS PO2 57 mm/Hg (30-55); VENOUS BLOOD PH 7.46 (7.32-7.43)
--- NOTE | 2017-11-10 00:17 | ED PDOC ---
Upper Extremity Pain/Injury Time Seen by Provider: 11/09/17 23:11 Chief Complaint (Nursing): Upper Extremity Problem/Injury Additional Complaint(s): 62 YO M w/ PMH of HIV, IV drug use (heroin), HTN, Hep C is admitted for left forearm pain and swelling. He has been admitted for similar complaint in same region in the past. Patient states 5 days ago he was injecting heroin into his vein when he " hit a bad vein. " Since then the swelling and pain has been worsening. Last used heroin today, by "snorting it". Denies any fever, chills, nausea, vomiting. - Was diagnosed with HTN in the past however medication was D/C because patient had not been compliant with his medication. PMHx: HIV 05/2017 CD4: 452, Viral load < 20, Chronic Hep C, HTN, LEFT forearm cellulitis (Sep) and November) from IVDA, SVT (Sep) from IVDA PSHx: None Meds: Atripla 600-200-300 Allergies: NKDA FHx: None contributory SHx: Homeless, Frequent illicit drug abuse, Heroin and cocain. Denies alcohol use, Occasional smoking Past Medical History Vital Signs: Last Vital Signs Temp 97.9 F 11/09/17 23:04 Pulse 63 11/09/17 23:42 Resp 16 11/09/17 23:04 BP 144/80 11/10/17 00:00 Pulse Ox 100 11/09/17 23:55 - Medical History PMH: Hepatitis (C w/liver failure), Hiatal Hernia (right inguinal), HIV, HTN Denies: Diabetes, Hypercholesterolemia, Chronic Kidney Disease, Seizures, Sexually Transmitted Disease - Family History Family History: States: Unknown Family Hx - Social History Drugs: Opiates - Immunization History Hx Tetanus Toxoid Vaccination: No Hx Influenza Vaccination: No Hx Pneumococcal Vaccination: No - Home Medications Home Medications: Ambulatory Orders Medication Instructions Recorded Efavirenz/Emtricitabine/Teno 1 tab PO DAILY 09/09/16 [Atripla 600 MG-200 MG-300 MG] - Allergies Allergies/Adverse Reactions: Allergies Allergy/AdvReac Type Severity Reaction Status Date / Time No Known Allergies Allergy Verified 11/09/17 23:03 - Laboratory Results Result Diagrams: 11/09/17 23:35 - ECG O2 Sat by Pulse Oximetry: 100 - Progress ED Course And Treament: 61 yo M w PMHx of HIV, IV Drug Abuse, Heroin abuse, HTN, and Hep C is admitted for left forearm pain w worsening abscess for five days. 1) Left forearm pain and abscess - ER: Vanco 1 gm x 1 dose and Zosyn 3.375 x 1 dose - Vanco 1gm Q12 daily - Pain medications ordered - F/U w/ Forearm x ray 2) HIV not AIDS - 05/2017: CD4: 452, HIV viral load <20 - C/W home meds - F/U with CD4 and viral load 3) HTN - HTN on admission possibly secondary to pain - Restart patients previous med Vasotec 5 mg 4) DVT prophylaxis - SCD Disposition - Clinical Impression Clinical Impression: Abscess of forearm, left, Cellulitis, IV drug abuse - Disposition Disposition: Routine/Home Disposition Time: 23:55 Condition: STABLE - Pt Status Changed To: Hospital Disposition Of: Observation - POA Present On Arrival: None
--- NOTE | 2017-11-10 00:22 | CP.PCM.CON ---
History of Present Illness - History of Present Illness History of Present Illness: General Surgery Consult Note for Dr. Conn Reason for consult: Left fore arm abscess 62 M with PMH of HTN, HIV, and Hep C presents to [facility] with complaint of left forearm pain and swelling. Patient was seen and evaluated in the ED. Patient states that he has had these symptoms for about 5 days. He reports that he was injecting heroin into that are at that tie. He states that he usually snorts heroin but sometime injects. Last time he injected, he had similar symptoms. He rates pain as moderate intensity. he describes pain as constant and stabbing in left forearm without radiation. He states palpation and cerain movements exacerbates pain while nothing alleviates it. Denies fever/chills, cp, SOB, palpitations, abd pain, nausea/vomiting, diarrhea, constipation, incontinence, numbness/tingling. PMH: HTN, HIV, and Hep C Meds: denies Allergy: NKDA PSH: Denies FH: non-contributory Social: admits to tobacco/EtOH/heroin use - numerous bags per day does not usually count Review of Systems - Review of Systems All systems: reviewed and no additional remarkable complaints except (as per HPI ) Past Patient History - Infectious Disease Hx of Infectious Diseases: None - Past Medical History & Family History Past Medical History?: Yes - Past Social History Drugs: Opiates - CARDIAC Hx Hypercholesterolemia: No Hx Hypertension: Yes - PULMONARY Hx Respiratory Disorders: No - NEUROLOGICAL Hx Seizures: No - HEENT Hx HEENT Problems: No - RENAL Hx Chronic Kidney Disease: No - ENDOCRINE/METABOLIC Hx Endocrine Disorders: No - HEMATOLOGICAL/ONCOLOGICAL Hx Human Immunodeficiency Virus (HIV): Yes - INTEGUMENTARY Hx Dermatological Problems: No - MUSCULOSKELETAL/RHEUMATOLOGICAL Hx Musculoskeletal Disorders: No - GASTROINTESTINAL Hx Gastrointestinal Disorders: No Hx Liver Failure: (Hepatitis C) - GENITOURINARY/GYNECOLOGICAL Hx Sexually Transmitted Disorders: No - PSYCHIATRIC Hx Psychophysiologic Disorder: Yes (Denies) Hx Substance Use: Yes (heroin, cocaine) - SURGICAL HISTORY Hx Surgeries: No - ANESTHESIA Hx Anesthesia: No Hx Anesthesia Reactions: No Hx Malignant Hyperthermia: No Meds Allergies/Adverse Reactions: Allergies Allergy/AdvReac Type Severity Reaction Status Date / Time No Known Allergies Allergy Verified 11/09/17 23:03 - Medications Medications: Current Medications Acetaminophen (Tylenol 325mg Tab) 650 mg PO Q6 PRN PRN Reason: Pain, Mild (1-3) Acetaminophen (Tylenol 325mg Tab) 650 mg PO Q6 PRN PRN Reason: Fever >100.4 F Sodium Chloride (Sodium Chloride 0.9%) 1,000 mls @ 500 mls/hr IV .Q2H STA Stop: 11/10/17 01:13 Last Admin: 11/09/17 23:46 Dose: 500 mls/hr Piperacillin Sod/Tazobactam (Sod 3.375 gm/ Sodium Chloride) 100 mls @ 100 mls/ hr IV ONCE ONE PRN Reason: Protocol Stop: 11/10/17 00:25 Last Admin: 11/09/17 23:25 Dose: 100 mls/hr Vancomycin HCl 1 gm/ Sodium (Chloride) 250 mls @ 166.667 mls/hr IVPB STAT STA PRN Reason: Protocol Stop: 11/10/17 01:02 Last Admin: 11/09/17 23:48 Dose: 166.667 mls/hr Ketorolac Tromethamine (Toradol) 30 mg IVP Q6 PRN PRN Reason: Pain, moderate (4-7) Physical Exam - Constitutional Appears: Non-toxic, No Acute Distress, Unkempt - Head Exam Head Exam: ATRAUMATIC, NORMOCEPHALIC - Eye Exam Eye Exam: EOMI, Normal appearance Pupil Exam: PERRL - ENT Exam ENT Exam: Mucous Membranes Moist - Neck Exam Neck exam: Positive for: Full Rom - Respiratory Exam Respiratory Exam: NORMAL BREATHING PATTERN - Cardiovascular Exam Cardiovascular Exam: REGULAR RHYTHM - GI/Abdominal Exam GI & Abdominal Exam: Soft. absent: Tenderness - Extremities Exam Extremities exam: Positive for: normal capillary refill, pedal pulses present. Negative for: calf tenderness Additional comments: Left forearm: 5 x 3 cm area of edema and erythema, no fluctuance noted, TTP - Back Exam Back exam: absent: CVA tenderness (L), CVA tenderness (R) - Neurological Exam Neurological exam: Alert, CN II-XII Intact, Oriented x3 - Psychiatric Exam Psychiatric exam: Normal Affect, Normal Mood - Skin Skin Exam: Dry, Intact, Warm Results - Vital Signs Recent Vital Signs: Last Vital Signs Temp 97.9 F 11/09/17 23:04 Pulse 63 11/09/17 23:42 Resp 16 11/09/17 23:04 BP 144/80 11/10/17 00:00 Pulse Ox 100 11/10/17 00:17 - Labs Result Diagrams: 11/09/17 23:35 Labs: Laboratory Results - last 24 hr 11/09/17 23:45 pO2 57 H VBG pH 7.46 H VBG pCO2 45 VBG HCO3 30.3 VBG Total CO2 33.4 H VBG O2 Sat (Calc) 95.3 H VBG Base Excess 7.1 H VBG Potassium 3.4 L Sodium 137.0 Chloride 104.0 Glucose 97 Lactate 0.6 L FiO2 21.0 Venous Blood Potassium 3.4 L Assessment & Plan - Assessment and Plan (Free Text) Plan: 62 M with left forearm abscess -Iv fluids -IV antibiotics -Warm compresses -Pain control -Drainage when fluctuant -Will discuss with Dr. Fabien Barajas PGY1
[2017-11-10 00:25] LABS: ALBUMIN 3.7 g/dL (3.5-5.0); ALT/SGPT 41 U/L (21-72); AST/SGOT 42 U/L (17-59); BLOOD UREA NITROGEN 15 mg/dl (9-20); CALCIUM 8.7 mg/dL (8.4-10.2); GFR AFRICAN-AMERICAN > 60; GFR NON-AFRICAN AMERICAN > 60
[2017-11-10 00:32] LABS: BASO # 0.1 K/uL (0.0-0.2); EOS # 0.1 K/uL (0.0-0.7); EOS % 0.6 % (0.0-4.0); HEMOGLOBIN 13.2 g/dL (12.0-18.0); INR 1.1 (0.9-1.2); LYMPH # 1.7 K/uL (1.0-4.3); LYMPH % 15.2 % (20.0-40.0); MEAN CELL VOLUME 85.3 fl (80.0-94.0); MEAN CORPUSCULAR HEMOGLOBIN 29.4 pg (27.0-31.0); MEAN CORPUSCULAR HGB CONC 34.4 g/dL (33.0-37.0); MEAN PLATELET VOLUME 8.6 fl (7.2-11.7); MONO # 0.8 K/uL (0.0-0.8); MONO % 6.9 % (0.0-10.0); NEUT # 8.5 K/uL (1.8-7.0); NEUT % 76.3 % (50.0-75.0); PARTIAL THROMBOPLASTIN TIME 32.3 Seconds (25.6-37.1); PROTHROMBIN TIME 12.5 Seconds (9.8-13.1); RBC 4.51 Mil/uL (4.40-5.90); RED CELL DISTRIBUTION WIDTH 14.1 % (11.5-14.5); WHITE BLOOD COUNT 11.2 K/uL (4.8-10.8)
[2017-11-10 00:33] LABS: URINE BILIRUBIN NEGATIVE (NEGATIVE); URINE BLOOD NEGATIVE (NEGATIVE); URINE CLARITY CLEAR (Clear); URINE COLOR YELLOW (YELLOW); URINE GLUCOSE (UA) NEG (Normal); URINE LEUKOCYTE ESTERASE NEG Leu/uL (Negative); URINE PROTEIN NEGATIVE (NEGATIVE); URINE UROBILINOGEN 0.2-1.0 mg/dL (0.2-1.0)
[2017-11-10 00:50] LABS: BARBITURATES, UR NEGATIVE (NEGATIVE)
[2017-11-10 00:57] LABS: BENZODIAZEPINES, UR NEGATIVE (NEGATIVE); OPIATES, UR POSITIVE (NEGATIVE); PHENCYCLIDINE, UR NEGATIVE (NEGATIVE)
--- NOTE | 2017-11-10 01:13 | CP.PCM.HP ---
<Tomasz Chand - Last Filed: 11/10/17 06:13> History of Present Illness - History of Present Illness History of Present Illness: 62 YO M w/ PMH of HIV, IV drug use (heroin), HTN, Hep C is admitted for left forearm pain and swelling. He has been admitted for similar complaint in same region in the past. Patient states 5 days ago he was injecting heroin into his vein when he " hit a bad vein. " Since then the swelling and pain has been worsening. Last used heroin today, by "snorting it". Denies any fever, chills, nausea, vomiting. - Was diagnosed with HTN in the past however medication was D/C because patient had not been compliant with his medication. PMHx: HIV 05/2017 CD4: 452, Viral load < 20, Chronic Hep C, HTN, LEFT forearm cellulitis (Sep) and November) from IVDA, SVT (Sep) from IVDA PSHx: None Meds: Atripla 600-200-300 Allergies: NKDA FHx: None contributory SHx: Homeless, Frequent illicit drug abuse, Heroin and cocain. Denies alcohol use, Occasional smoking Present on Admission - Present on Admission Any Indicators Present on Admission: No History of DVT/PE: No History of Uncontrolled Diabetes: No Urinary Catheter: No Decubitus Ulcer Present: No Review of Systems - Review of Systems All systems: reviewed and no additional remarkable complaints except Past Patient History - Infectious Disease Hx of Infectious Diseases: None - Past Medical History & Family History Past Medical History?: Yes - Past Social History Drugs: Opiates - CARDIAC Hx Hypercholesterolemia: No Hx Hypertension: Yes - PULMONARY Hx Respiratory Disorders: No - NEUROLOGICAL Hx Seizures: No - HEENT Hx HEENT Problems: No - RENAL Hx Chronic Kidney Disease: No - ENDOCRINE/METABOLIC Hx Endocrine Disorders: No - HEMATOLOGICAL/ONCOLOGICAL Hx Human Immunodeficiency Virus (HIV): Yes - INTEGUMENTARY Hx Dermatological Problems: No - MUSCULOSKELETAL/RHEUMATOLOGICAL Hx Musculoskeletal Disorders: No - GASTROINTESTINAL Hx Gastrointestinal Disorders: No Hx Liver Failure: (Hepatitis C) - GENITOURINARY/GYNECOLOGICAL Hx Sexually Transmitted Disorders: No - PSYCHIATRIC Hx Psychophysiologic Disorder: Yes (Denies) Hx Substance Use: Yes (heroin, cocaine) - SURGICAL HISTORY Hx Surgeries: No - ANESTHESIA Hx Anesthesia: No Hx Anesthesia Reactions: No Hx Malignant Hyperthermia: No Meds Allergies/Adverse Reactions: Allergies Allergy/AdvReac Type Severity Reaction Status Date / Time No Known Allergies Allergy Verified 11/09/17 23:03 Physical Exam - Constitutional Appears: No Acute Distress, Unkempt - Head Exam Head Exam: ATRAUMATIC - ENT Exam ENT Exam: Mucous Membranes Moist, Normal Exam - Respiratory Exam Respiratory Exam: Clear to Auscultation Bilateral, NORMAL BREATHING PATTERN. absent: Wheezes - Cardiovascular Exam Cardiovascular Exam: REGULAR RHYTHM, +S1, +S2 - GI/Abdominal Exam GI & Abdominal Exam: Normal Bowel Sounds, Soft. absent: Tenderness - Extremities Exam Additional comments: Left forearm shows area non fluctuant swelling 4 x 3 cm (circular region w/ erythema extending around forearm. Tender to palpate, - Back Exam Back exam: absent: CVA tenderness (L), CVA tenderness (R) - Neurological Exam Neurological exam: Alert, CN II-XII Intact, Oriented x3 Results - Vital Signs Recent Vital Signs: Last Vital Signs Temp 97.9 F 11/09/17 23:04 Pulse 63 11/09/17 23:42 Resp 16 11/09/17 23:04 BP 144/80 11/10/17 00:00 Pulse Ox 100 11/09/17 23:55 - Labs Result Diagrams: 11/09/17 23:35 11/09/17 23:35 Labs: Laboratory Results - last 24 hr 11/09/17 11/09/17 11/09/17 23:35 23:35 23:35 WBC 11.2 H RBC 4.51 Hgb 13.2 Hct 38.4 MCV 85.3 MCH 29.4 MCHC 34.4 RDW 14.1 Plt Count 219 MPV 8.6 Neut % (Auto) 76.3 H Lymph % (Auto) 15.2 L [place]chran % (Auto) 6.9 Eos % (Auto) 0.6 Baso % (Auto) 1.0 Neut # (Auto) 8.5 H Lymph # (Auto) 1.7 Cochran # (Auto) 0.8 Eos # (Auto) 0.1 Baso # (Auto) 0.1 PT 12.5 INR 1.1 APTT 32.3 pO2 VBG pH VBG pCO2 VBG HCO3 VBG Total CO2 VBG O2 Sat (Calc) VBG Base Excess VBG Potassium Glucose Lactate FiO2 Sodium 141 Potassium 3.7 Chloride 99 Carbon Dioxide 28 Anion Gap 18 BUN 15 Creatinine 0.8 Est GFR ( Amer) > 60 Est GFR (Non-Af Amer) > 60 Random Glucose 95 Calcium 8.7 Total Bilirubin 0.5 AST 42 ALT 41 Alkaline Phosphatase 95 Troponin I < 0.0120 Total Protein 7.4 Albumin 3.7 Globulin 3.7 Albumin/Globulin Ratio 1.0 Venous Blood Potassium Urine Color Urine Clarity Urine pH Ur Specific [place] Urine Protein Urine Glucose (UA) Urine Ketones Urine Blood Urine Nitrate Urine Bilirubin Urine Urobilinogen Ur Leukocyte Esterase Urine RBC (Auto) Urine Microscopic WBC Urine Opiates Screen Urine Methadone Screen Ur Barbiturates Screen Ur Phencyclidine Scrn Ur Amphetamines Screen U Benzodiazepines Scrn U Oth Cocaine Metabols U Cannabinoids Screen 11/09/17 11/10/17 11/10/17 23:45 00:20 00:20 WBC RBC Hgb Hct MCV MCH MCHC RDW Plt Count MPV Neut % (Auto) Lymph % (Auto) Cochran % (Auto) Eos % (Auto) Baso % (Auto) Neut # (Auto) Lymph # (Auto) Cochran # (Auto) Eos # (Auto) Baso # (Auto) PT INR APTT pO2 57 H VBG pH 7.46 H VBG pCO2 45 VBG HCO3 30.3 VBG Total CO2 33.4 H VBG O2 Sat (Calc) 95.3 H VBG Base Excess 7.1 H VBG Potassium 3.4 L Glucose 97 Lactate 0.6 L FiO2 21.0 Sodium 137.0 Potassium Chloride 104.0 Carbon Dioxide Anion Gap BUN Creatinine Est GFR ( Amer) Est GFR (Non-Af Amer) Random Glucose Calcium Total Bilirubin AST ALT Alkaline Phosphatase Troponin I Total Protein Albumin Globulin Albumin/Globulin Ratio Venous Blood Potassium 3.4 L Urine Color Yellow Urine Clarity Clear Urine pH 7.0 Ur Specific [place] 1.017 Urine Protein Negative Urine Glucose (UA) Neg Urine Ketones Negative Urine Blood Negative Urine Nitrate Negative Urine Bilirubin Negative Urine Urobilinogen 0.2-1.0 Ur Leukocyte Esterase Neg Urine RBC (Auto) 2 Urine Microscopic WBC 1 Urine Opiates Screen Positive H Urine Methadone Screen Negative Ur Barbiturates Screen Negative Ur Phencyclidine Scrn Negative Ur Amphetamines Screen Negative U Benzodiazepines Scrn Negative U Oth Cocaine Metabols Positive H U Cannabinoids Screen Negative Assessment & Plan - Assessment and Plan (Free Text) Assessment: 61 yo M w PMHx of HIV, IV Drug Abuse, Heroin abuse, HTN, and Hep C is admitted for left forearm pain w worsening abscess for five days. 1) Left forearm pain and abscess - WBC: 11.2 w/ left shift. Lactate of .6 - ER: Vanco 1 gm x 1 dose and Zosyn 3.375 x 1 dose - Vanco 1gm Q12 daily - Zosysn 3.375 Q6 - Pain medications ordered - F/U w/ Forearm x ray - Surgery consult appreciated 2) HIV not AIDS - Patient states to be compliant with medication - 05/2017: CD4: 452, HIV viral load <20 - C/W home meds - F/U with CD4 and viral load 3) Chronic Hep C Hep C RNA: [id number] on 11/2016 - F/U with recent viral load 4) HTN - HTN on admission possibly secondary to pain - Restart patients previous med Vasotec 5 mg 5) DVT prophylaxis - SCD <Wilma Swartz - Last Filed: 11/10/17 07:08> Results - Vital Signs Recent Vital Signs: Last Vital Signs Temp 98.0 F 11/10/17 03:27 Pulse 53 L 11/10/17 03:27 Resp 20 11/10/17 03:27 BP 136/86 11/10/17 03:27 Pulse Ox 99 11/10/17 03:27 - Labs Result Diagrams: 11/09/17 23:35 11/09/17 23:35 Labs: Laboratory Results - last 24 hr 11/09/17 11/09/17 11/09/17 23:35 23:35 23:35 WBC 11.2 H RBC 4.51 Hgb 13.2 Hct 38.4 MCV 85.3 MCH 29.4 MCHC 34.4 RDW 14.1 Plt Count 219 MPV 8.6 Neut % (Auto) 76.3 H Lymph % (Auto) 15.2 L Cochran % (Auto) 6.9 Eos % (Auto) 0.6 Baso % (Auto) 1.0 Neut # (Auto) 8.5 H Lymph # (Auto) 1.7 Cochran # (Auto) 0.8 Eos # (Auto) 0.1 Baso # (Auto) 0.1 PT 12.5 INR 1.1 APTT 32.3 pO2 VBG pH VBG pCO2 VBG HCO3 VBG Total CO2 VBG O2 Sat (Calc) VBG Base Excess VBG Potassium Glucose Lactate FiO2 Sodium 141 Potassium 3.7 Chloride 99 Carbon Dioxide 28 Anion Gap 18 BUN 15 Creatinine 0.8 Est GFR ( Amer) > 60 Est GFR (Non-Af Amer) > 60 Random Glucose 95 Calcium 8.7 Total Bilirubin 0.5 AST 42 ALT 41 Alkaline Phosphatase 95 Troponin I < 0.0120 Total Protein 7.4 Albumin 3.7 Globulin 3.7 Albumin/Globulin Ratio 1.0 Venous Blood Potassium Urine Color Urine Clarity Urine pH Ur Specific [place] Urine Protein Urine Glucose (UA) Urine Ketones Urine Blood Urine Nitrate Urine Bilirubin Urine Urobilinogen Ur Leukocyte Esterase Urine RBC (Auto) Urine Microscopic WBC Urine Opiates Screen Urine Methadone Screen Ur Barbiturates Screen Ur Phencyclidine Scrn Ur Amphetamines Screen U Benzodiazepines Scrn U Oth Cocaine Metabols U Cannabinoids Screen 11/09/17 11/10/17 11/10/17 23:45 00:20 00:20 WBC RBC Hgb Hct MCV MCH MCHC RDW Plt Count MPV Neut % (Auto) Lymph % (Auto) [place] % (Auto) Eos % (Auto) Baso % (Auto) Neut # (Auto) Lymph # (Auto) Cochran # (Auto) Eos # (Auto) Baso # (Auto) PT INR APTT pO2 57 H VBG pH 7.46 H VBG pCO2 45 VBG HCO3 30.3 VBG Total CO2 33.4 H VBG O2 Sat (Calc) 95.3 H VBG Base Excess 7.1 H VBG Potassium 3.4 L Glucose 97 Lactate 0.6 L FiO2 21.0 Sodium 137.0 Potassium Chloride 104.0 Carbon Dioxide Anion Gap BUN Creatinine Est GFR ( Amer) Est GFR (Non-Af Amer) Random Glucose Calcium Total Bilirubin AST ALT Alkaline Phosphatase Troponin I Total Protein Albumin Globulin Albumin/Globulin Ratio Venous Blood Potassium 3.4 L Urine Color Yellow Urine Clarity Clear Urine pH 7.0 Ur Specific [place] 1.017 Urine Protein Negative Urine Glucose (UA) Neg Urine Ketones Negative Urine Blood Negative Urine Nitrate Negative Urine Bilirubin Negative Urine Urobilinogen 0.2-1.0 Ur Leukocyte Esterase Neg Urine RBC (Auto) 2 Urine Microscopic WBC 1 Urine Opiates Screen Positive H Urine Methadone Screen Negative Ur Barbiturates Screen Negative Ur Phencyclidine Scrn Negative Ur Amphetamines Screen Negative U Benzodiazepines Scrn Negative U Oth Cocaine Metabols Positive H U Cannabinoids Screen Negative Addendum Addendum: 11/10/17 07:07 ATTENDING NOTE ATTESTION. CHART REVIEWED. CASE DISCUSSED WITH RESIDENT. AGREE WITH FINDINGS AND PLAN.
[2017-11-10] MEDS ORDERED: Piperacillin/Tazobact 3.375 GM in Sodium Chloride 0.9% 100 ML IVPB SCH (06:00)
--- NOTE | 2017-11-10 07:46 | CARD ---
APPROVED REPORT EKG Measurement Heart [id number] <Conclusion> Normal sinus rhythm Left axis deviation Poss Septal infarct (Old) Abnormal ECG
[2017-11-10] MEDS: Emtricitabine-Tenofovir 200 mg-300 mg Tab PO SCH (09:03)
--- NOTE | 2017-11-10 09:15 | RAD ---
PROCEDURE: Radiographs of the Left Forearm HISTORY: abscess COMPARISON: None available. TECHNIQUE: Frontal and lateral views obtained. FINDINGS: BONES: No fracture or destructive lesion. JOINT SPACES: Unremarkable. OTHER FINDINGS: None. IMPRESSION: Unremarkable radiographs of the left forearm.
--- NOTE | 2017-11-10 09:15 | RAD ---
HISTORY: admission COMPARISON: Chest radiograph dated 11/06/2016 FINDINGS: LUNGS: No active pulmonary disease. PLEURA: No significant pleural effusion identified, no pneumothorax apparent. CARDIOVASCULAR: Atherosclerotic aortic calcifications. Cardiomediastinal silhouette within normal limits. OSSEOUS STRUCTURES: Unchanged. VISUALIZED UPPER ABDOMEN: Normal. OTHER FINDINGS: None. IMPRESSION: No active disease.
--- NOTE | 2017-11-10 09:35 | CP.PCM.PN ---
Objective - Vital Signs/Intake and Output Vital Signs (last 24 hours): Temp Pulse Resp BP Pulse Ox 97.3 F L 54 L 20 144/83 96 11/10/17 08:15 11/10/17 08:15 11/10/17 08:15 11/10/17 08:15 11/10/17 08:15 - Medications Medications: Current Medications Acetaminophen (Tylenol 325mg Tab) 650 mg PO Q6 PRN PRN Reason: Pain, Mild (1-3) Acetaminophen (Tylenol 325mg Tab) 650 mg PO Q6 PRN PRN Reason: Fever >100.4 F Efavirenz (Sustiva) 600 mg PO DAILY ON LICENSE OF [facility] Last Admin: 11/10/17 09:03 Dose: 600 mg Emtricitabine/Tenofovir (Truvada 200 Mg-300 Mg) 1 tab PO DAILY ON LICENSE OF [facility] Last Admin: 11/10/17 09:03 Dose: 1 tab Enalapril Maleate (Vasotec) 5 mg PO DAILY ON LICENSE OF [facility] Vancomycin HCl 1 gm/ Sodium (Chloride) 250 mls @ 166.667 mls/hr IVPB Q12 JOAN PRN Reason: Protocol Piperacillin Sod/Tazobactam (Sod 3.375 gm/ Sodium Chloride) 100 mls @ 100 mls/ hr IVPB Q6 JOAN PRN Reason: Protocol Last Admin: 11/10/17 06:01 Dose: 100 mls/hr Ketorolac Tromethamine (Toradol) 30 mg IVP Q6 PRN PRN Reason: Pain, moderate (4-7) Last Admin: 11/10/17 05:55 Dose: 30 mg Oxycodone/Acetaminophen (Percocet 5/325 Mg Tab) 1 tab PO Q6 PRN PRN Reason: Pain, severe (8-10) Stop: 11/13/17 00:25 - Labs Labs: 11/09/17 23:35 11/09/17 23:35 PT 12.5 Seconds (9.8-13.1) 11/09/17 23:35 INR 1.1 (0.9-1.2) 11/09/17 23:35 APTT 32.3 Seconds (25.6-37.1) 11/09/17 23:35
[2017-11-10 09:39] LABS: BASO # 0.1 K/uL (0.0-0.2); BASO % 1.1 % (0.0-2.0); EOS # 0.1 K/uL (0.0-0.7); EOS % 1.4 % (0.0-4.0); HEMOGLOBIN 13.1 g/dL (12.0-18.0); LYMPH # 1.5 K/uL (1.0-4.3); LYMPH % 14.9 % (20.0-40.0); MEAN CELL VOLUME 86.1 fl (80.0-94.0); MEAN CORPUSCULAR HEMOGLOBIN 29.3 pg (27.0-31.0); MEAN PLATELET VOLUME 8.8 fl (7.2-11.7); MONO # 0.7 K/uL (0.0-0.8); MONO % 7.4 % (0.0-10.0); NEUT # 7.6 K/uL (1.8-7.0); NEUT % 75.2 % (50.0-75.0); RBC 4.47 Mil/uL (4.40-5.90); RED CELL DISTRIBUTION WIDTH 14.2 % (11.5-14.5); WHITE BLOOD COUNT 10.1 K/uL (4.8-10.8)
[2017-11-10] MEDS ORDERED: Lidocaine 1% Inj (20ml) IJ STA (10:04)
--- NOTE | 2017-11-10 10:48 | CP.PCM.CON ---
History of Present Illness - History of Present Illness History of Present Illness: Infectious Disease Consultation Note- Asked to see this patient at the request of the family practice team for left arm abscess. HPI- MOST of the history obtained from the medical chart . Patient is a 62 year old male with h/o IVDU , HIV pos, Hep C positive who came to hospital with c/o left forearm pain and swelling after injecting heroine in the region 5 days ago that has worsened and also pt. states that he injected heroine yesterday again in the same region. pt. s/p I and D of the left forearm abscess by surgery earlier and has packing inside. He denies any fever or chills. PMHx: HIV 05/2017 CD4: 452, Viral load < 20, Chronic Hep C, HTN, LEFT forearm cellulitis (Sep) and November) from IVDA, SVT (Sep) from IVDA PSHx: None Meds: Atripla 600-200-300 Allergies: NKDA FHx: None contributory SHx: Homeless, Frequent illicit drug abuse, Heroin and cocain. Denies alcohol use, Occasional smoking Review of Systems - Review of Systems Review of Systems: ROS- denies any fever or chills, denies any PANDA, denies any cough, denies any sob, denies any chest pain, denies any abd. pain, denies any nausea or vomiting, denies any dysurea, denies any diarrhea left arm swelling/redness /pain Past Patient History - Infectious Disease Hx of Infectious Diseases: None - Past Medical History & Family History Past Medical History?: Yes - Past Social History Drugs: Opiates - CARDIAC Hx Hypercholesterolemia: No Hx Hypertension: Yes - PULMONARY Hx Respiratory Disorders: No - NEUROLOGICAL Hx Seizures: No - HEENT Hx HEENT Problems: No - RENAL Hx Chronic Kidney Disease: No - ENDOCRINE/METABOLIC Hx Endocrine Disorders: No - HEMATOLOGICAL/ONCOLOGICAL Hx Human Immunodeficiency Virus (HIV): Yes - INTEGUMENTARY Hx Dermatological Problems: No - MUSCULOSKELETAL/RHEUMATOLOGICAL Hx Musculoskeletal Disorders: No - GASTROINTESTINAL Hx Gastrointestinal Disorders: No Hx Liver Failure: (Hepatitis C) - GENITOURINARY/GYNECOLOGICAL Hx Sexually Transmitted Disorders: No - PSYCHIATRIC Hx Psychophysiologic Disorder: Yes (Denies) Hx Substance Use: Yes (heroin, cocaine) - SURGICAL HISTORY Hx Surgeries: No - ANESTHESIA Hx Anesthesia: No Hx Anesthesia Reactions: No Hx Malignant Hyperthermia: No Meds Allergies/Adverse Reactions: Allergies Allergy/AdvReac Type Severity Reaction Status Date / Time No Known Allergies Allergy Verified 11/09/17 23:03 - Medications Medications: Current Medications Acetaminophen (Tylenol 325mg Tab) 650 mg PO Q6 PRN PRN Reason: Pain, Mild (1-3) Acetaminophen (Tylenol 325mg Tab) 650 mg PO Q6 PRN PRN Reason: Fever >100.4 F Efavirenz (Sustiva) 600 mg PO DAILY [facility] Last Admin: 11/10/17 09:03 Dose: 600 mg Emtricitabine/Tenofovir (Truvada 200 Mg-300 Mg) 1 tab PO DAILY [facility] Last Admin: 11/10/17 09:03 Dose: 1 tab Enalapril Maleate (Vasotec) 5 mg PO DAILY [facility] Vancomycin HCl 1 gm/ Sodium (Chloride) 250 mls @ 166.667 mls/hr IVPB Q12 JOAN PRN Reason: Protocol Piperacillin Sod/Tazobactam (Sod 3.375 gm/ Sodium Chloride) 100 mls @ 100 mls/ hr IVPB Q6 JOAN PRN Reason: Protocol Last Admin: 11/10/17 06:01 Dose: 100 mls/hr Ketorolac Tromethamine (Toradol) 30 mg IVP Q6 PRN PRN Reason: Pain, moderate (4-7) Last Admin: 11/10/17 05:55 Dose: 30 mg Oxycodone/Acetaminophen (Percocet 5/325 Mg Tab) 1 tab PO Q6 PRN PRN Reason: Pain, severe (8-10) Stop: 11/13/17 00:25 Physical Exam - Constitutional Appears: No Acute Distress, Unkempt, Chronically Ill - Head Exam Head Exam: ATRAUMATIC - Eye Exam Eye Exam: EOMI - Neck Exam Neck exam: Positive for: Full Rom - Respiratory Exam Respiratory Exam: Clear to Auscultation Bilateral, NORMAL BREATHING PATTERN - Cardiovascular Exam Cardiovascular Exam: RRR, +S1, +S2 - GI/Abdominal Exam GI & Abdominal Exam: Normal Bowel Sounds, Soft Additional comments: NT, ND - Extremities Exam Additional comments: left anterior mid-forearm region with 10x 12 cm area of erythema, edema packing in place, no active discharge now + tenderness to palpation - Neurological Exam Neurological exam: Alert, Oriented x3 Results - Vital Signs Recent Vital Signs: Last Vital Signs Temp 97.3 F L 11/10/17 08:15 Pulse 54 L 11/10/17 08:15 Resp 20 11/10/17 08:15 BP 144/83 11/10/17 08:15 Pulse Ox 96 11/10/17 08:15 - Labs Result Diagrams: 11/10/17 09:00 11/10/17 10:21 Labs: Laboratory Results - last 24 hr 11/09/17 11/09/17 11/09/17 23:35 23:35 23:35 WBC 11.2 H RBC 4.51 Hgb 13.2 Hct 38.4 MCV 85.3 MCH 29.4 MCHC 34.4 RDW 14.1 Plt Count 219 MPV 8.6 Neut % (Auto) 76.3 H Lymph % (Auto) 15.2 L [place] % (Auto) 6.9 Eos % (Auto) 0.6 Baso % (Auto) 1.0 Neut # (Auto) 8.5 H Lymph # (Auto) 1.7 [place] # (Auto) 0.8 Eos # (Auto) 0.1 Baso # (Auto) 0.1 PT 12.5 INR 1.1 APTT 32.3 pO2 VBG pH VBG pCO2 VBG HCO3 VBG Total CO2 VBG O2 Sat (Calc) VBG Base Excess VBG Potassium Glucose Lactate FiO2 Sodium 141 Potassium 3.7 Chloride 99 Carbon Dioxide 28 Anion Gap 18 BUN 15 Creatinine 0.8 Est GFR ( Amer) > 60 Est GFR (Non-Af Amer) > 60 Random Glucose 95 Calcium 8.7 Total Bilirubin 0.5 AST 42 ALT 41 Alkaline Phosphatase 95 Troponin I < 0.0120 Total Protein 7.4 Albumin 3.7 Globulin 3.7 Albumin/Globulin Ratio 1.0 Venous Blood Potassium Urine Color Urine Clarity Urine pH Ur Specific [place] Urine Protein Urine Glucose (UA) Urine Ketones Urine Blood Urine Nitrate Urine Bilirubin Urine Urobilinogen Ur Leukocyte Esterase Urine RBC (Auto) Urine Microscopic WBC Urine Opiates Screen Urine Methadone Screen Ur Barbiturates Screen Ur Phencyclidine Scrn Ur Amphetamines Screen U Benzodiazepines Scrn U Oth Cocaine Metabols U Cannabinoids Screen 11/09/17 11/10/17 11/10/17 23:45 00:20 00:20 WBC RBC Hgb Hct MCV MCH MCHC RDW Plt Count MPV Neut % (Auto) Lymph % (Auto) [place] % (Auto) Eos % (Auto) Baso % (Auto) Neut # (Auto) Lymph # (Auto) [place] # (Auto) Eos # (Auto) Baso # (Auto) PT INR APTT pO2 57 H VBG pH 7.46 H VBG pCO2 45 VBG HCO3 30.3 VBG Total CO2 33.4 H VBG O2 Sat (Calc) 95.3 H VBG Base Excess 7.1 H VBG Potassium 3.4 L Glucose 97 Lactate 0.6 L FiO2 21.0 Sodium 137.0 Potassium Chloride 104.0 Carbon Dioxide Anion Gap BUN Creatinine Est GFR ( Amer) Est GFR (Non-Af Amer) Random Glucose Calcium Total Bilirubin AST ALT Alkaline Phosphatase Troponin I Total Protein Albumin Globulin Albumin/Globulin Ratio Venous Blood Potassium 3.4 L Urine Color Yellow Urine Clarity Clear Urine pH 7.0 Ur Specific [place] 1.017 Urine Protein Negative Urine Glucose (UA) Neg Urine Ketones Negative Urine Blood Negative Urine Nitrate Negative Urine Bilirubin Negative Urine Urobilinogen 0.2-1.0 Ur Leukocyte Esterase Neg Urine RBC (Auto) 2 Urine Microscopic WBC 1 Urine Opiates Screen Positive H Urine Methadone Screen Negative Ur Barbiturates Screen Negative Ur Phencyclidine Scrn Negative Ur Amphetamines Screen Negative U Benzodiazepines Scrn Negative U Oth Cocaine Metabols Positive H U Cannabinoids Screen Negative 11/10/17 09:00 WBC 10.1 RBC 4.47 Hgb 13.1 Hct 38.5 MCV 86.1 MCH 29.3 MCHC 34.0 RDW 14.2 Plt Count 207 MPV 8.8 Neut % (Auto) 75.2 H Lymph % (Auto) 14.9 L [place] % (Auto) 7.4 Eos % (Auto) 1.4 Baso % (Auto) 1.1 Neut # (Auto) 7.6 H Lymph # (Auto) 1.5 [place] # (Auto) 0.7 Eos # (Auto) 0.1 Baso # (Auto) 0.1 PT INR APTT pO2 VBG pH VBG pCO2 VBG HCO3 VBG Total CO2 VBG O2 Sat (Calc) VBG Base Excess VBG Potassium Glucose Lactate FiO2 Sodium Potassium Chloride Carbon Dioxide Anion Gap BUN Creatinine Est GFR ( Amer) Est GFR (Non-Af Amer) Random Glucose Calcium Total Bilirubin AST ALT Alkaline Phosphatase Troponin I Total Protein Albumin Globulin Albumin/Globulin Ratio Venous Blood Potassium Urine Color Urine Clarity Urine pH Ur Specific [place] Urine Protein Urine Glucose (UA) Urine Ketones Urine Blood Urine Nitrate Urine Bilirubin Urine Urobilinogen Ur Leukocyte Esterase Urine RBC (Auto) Urine Microscopic WBC Urine Opiates Screen Urine Methadone Screen Ur Barbiturates Screen Ur Phencyclidine Scrn Ur Amphetamines Screen U Benzodiazepines Scrn U Oth Cocaine Metabols U Cannabinoids Screen Laboratory Results - last 72 hr 11/09/17 11/09/17 11/09/17 23:35 23:35 23:35 WBC 11.2 H RBC 4.51 Hgb 13.2 Hct 38.4 MCV 85.3 MCH 29.4 MCHC 34.4 RDW 14.1 Plt Count 219 MPV 8.6 Neut % (Auto) 76.3 H Lymph % (Auto) 15.2 L [place] % (Auto) 6.9 Eos % (Auto) 0.6 Baso % (Auto) 1.0 Neut # (Auto) 8.5 H Lymph # (Auto) 1.7 [place] # (Auto) 0.8 Eos # (Auto) 0.1 Baso # (Auto) 0.1 PT 12.5 INR 1.1 APTT 32.3 pO2 VBG pH VBG pCO2 VBG HCO3 VBG Total CO2 VBG O2 Sat (Calc) VBG Base Excess VBG Potassium Glucose Lactate FiO2 Sodium 141 Potassium 3.7 Chloride 99 Carbon Dioxide 28 Anion Gap 18 BUN 15 Creatinine 0.8 Est GFR ( Amer) > 60 Est GFR (Non-Af Amer) > 60 POC Glucose (mg/dL) Random Glucose 95 Calcium 8.7 Phosphorus Magnesium Total Bilirubin 0.5 AST 42 ALT 41 Alkaline Phosphatase 95 Troponin I < 0.0120 Total Protein 7.4 Albumin 3.7 Globulin 3.7 Albumin/Globulin Ratio 1.0 Venous Blood Potassium Urine Color Urine Clarity Urine pH Ur Specific [place] Urine Protein Urine Glucose (UA) Urine Ketones Urine Blood Urine Nitrate Urine Bilirubin Urine Urobilinogen Ur Leukocyte Esterase Urine RBC (Auto) Urine Microscopic WBC Urine Opiates Screen Urine Methadone Screen Ur Barbiturates Screen Ur Phencyclidine Scrn Ur Amphetamines Screen U Benzodiazepines Scrn U Oth Cocaine Metabols U Cannabinoids Screen 11/09/17 11/10/17 11/10/17 23:45 00:20 00:20 WBC RBC Hgb Hct MCV MCH MCHC RDW Plt Count MPV Neut % (Auto) Lymph % (Auto) [place] % (Auto) Eos % (Auto) Baso % (Auto) Neut # (Auto) Lymph # (Auto) [place] # (Auto) Eos # (Auto) Baso # (Auto) PT INR APTT pO2 57 H VBG pH 7.46 H VBG pCO2 45 VBG HCO3 30.3 VBG Total CO2 33.4 H VBG O2 Sat (Calc) 95.3 H VBG Base Excess 7.1 H VBG Potassium 3.4 L Glucose 97 Lactate 0.6 L FiO2 21.0 Sodium 137.0 Potassium Chloride 104.0 Carbon Dioxide Anion Gap BUN Creatinine Est GFR ( Amer) Est GFR (Non-Af Amer) POC Glucose (mg/dL) Random Glucose Calcium Phosphorus Magnesium Total Bilirubin AST ALT Alkaline Phosphatase Troponin I Total Protein Albumin Globulin Albumin/Globulin Ratio Venous Blood Potassium 3.4 L Urine Color Yellow Urine Clarity Clear Urine pH 7.0 Ur Specific [place] 1.017 Urine Protein Negative Urine Glucose (UA) Neg Urine Ketones Negative Urine Blood Negative Urine Nitrate Negative Urine Bilirubin Negative Urine Urobilinogen 0.2-1.0 Ur Leukocyte Esterase Neg Urine RBC (Auto) 2 Urine Microscopic WBC 1 Urine Opiates Screen Positive H Urine Methadone Screen Negative Ur Barbiturates Screen Negative Ur Phencyclidine Scrn Negative Ur Amphetamines Screen Negative U Benzodiazepines Scrn Negative U Oth Cocaine Metabols Positive H U Cannabinoids Screen Negative 11/10/17 11/10/17 11/10/17 09:00 10:21 12:12 WBC 10.1 RBC 4.47 Hgb 13.1 Hct 38.5 MCV 86.1 MCH 29.3 MCHC 34.0 RDW 14.2 Plt Count 207 MPV 8.8 Neut % (Auto) 75.2 H Lymph % (Auto) 14.9 L [place] % (Auto) 7.4 Eos % (Auto) 1.4 Baso % (Auto) 1.1 Neut # (Auto) 7.6 H Lymph # (Auto) 1.5 [place] # (Auto) 0.7 Eos # (Auto) 0.1 Baso # (Auto) 0.1 PT INR APTT pO2 VBG pH VBG pCO2 VBG HCO3 VBG Total CO2 VBG O2 Sat (Calc) VBG Base Excess VBG Potassium Glucose Lactate FiO2 Sodium 143 Potassium 3.9 Chloride 103 Carbon Dioxide 28 Anion Gap 16 BUN 13 Creatinine 0.8 Est GFR ( Amer) > 60 Est GFR (Non-Af Amer) > 60 POC Glucose (mg/dL) 106 Random Glucose 109 Calcium 8.6 Phosphorus Magnesium Total Bilirubin AST ALT Alkaline Phosphatase Troponin I Total Protein Albumin Globulin Albumin/Globulin Ratio Venous Blood Potassium Urine Color Urine Clarity Urine pH Ur Specific [place] Urine Protein Urine Glucose (UA) Urine Ketones Urine Blood Urine Nitrate Urine Bilirubin Urine Urobilinogen Ur Leukocyte Esterase Urine RBC (Auto) Urine Microscopic WBC Urine Opiates Screen Urine Methadone Screen Ur Barbiturates Screen Ur Phencyclidine Scrn Ur Amphetamines Screen U Benzodiazepines Scrn U Oth Cocaine Metabols U Cannabinoids Screen 11/10/17 12:30 WBC RBC Hgb Hct MCV MCH MCHC RDW Plt Count MPV Neut % (Auto) Lymph % (Auto) [place] % (Auto) Eos % (Auto) Baso % (Auto) Neut # (Auto) Lymph # (Auto) [place] # (Auto) Eos # (Auto) Baso # (Auto) PT INR APTT pO2 VBG pH VBG pCO2 VBG HCO3 VBG Total CO2 VBG O2 Sat (Calc) VBG Base Excess VBG Potassium Glucose Lactate FiO2 Sodium Potassium Chloride Carbon Dioxide Anion Gap BUN Creatinine Est GFR ( Amer) Est GFR (Non-Af Amer) POC Glucose (mg/dL) Random Glucose Calcium Phosphorus 1.8 L Magnesium 1.2 L Total Bilirubin AST ALT Alkaline Phosphatase Troponin I < 0.0120 Total Protein Albumin Globulin Albumin/Globulin Ratio Venous Blood Potassium Urine Color Urine Clarity Urine pH Ur Specific [place] Urine Protein Urine Glucose (UA) Urine Ketones Urine Blood Urine Nitrate Urine Bilirubin Urine Urobilinogen Ur Leukocyte Esterase Urine RBC (Auto) Urine Microscopic WBC Urine Opiates Screen Urine Methadone Screen Ur Barbiturates Screen Ur Phencyclidine Scrn Ur Amphetamines Screen U Benzodiazepines Scrn U Oth Cocaine Metabols U Cannabinoids Screen Microbiology 11/12/15 Unknown Abscess - Forearm Gram Stain - Final 11/12/15 Unknown Abscess - Forearm Wound Culture - Final Strep Intermedius/Milleri Accession No. : [id number] Patient Name / ID : MYRTLE MCGRAW / [id number] Exam Date : 11/10/2017 01:24:53 ( Approved ) Study Comment : Sex / Age : M / 62Y Creator : Ernie Suarez MD Dictator : Ernie Suarez MD Transfer And Pumphouse Operator : Plastic Molding Operator : Ernie Suarez MD Approver2 : Report Date : 11/10/2017 09:14:25 My Comment : PROCEDURE: Radiographs of the Left Forearm HISTORY: abscess COMPARISON: None available. TECHNIQUE: Frontal and lateral views obtained. FINDINGS: BONES: No fracture or destructive lesion. JOINT SPACES: Unremarkable. OTHER FINDINGS: None. IMPRESSION: Unremarkable radiographs of the left forearm. Assessment & Plan (1) Abscess of left forearm Status: Acute (2) IV drug abuse Status: Chronic (3) HIV (human immunodeficiency virus infection) Status: Acute (4) Hepatitis C Status: Chronic - Assessment and Plan (Free Text) Assessment: A/P- 62 year old male with HIV ( on atripla f/u with at [facility] ) , HCV, IVDU admitted with left arm abscess/cellulitis s/p IV drug injection. afebrile normal wbc count s/p I and D of the left forearms abscess by surgical team and has packing in place last CD4 seen in [facility] - 429 from 11/06/2016. not sure if patient has been treated for HCV in the past. plan- advise to continue with IV vancomycin 1 gram BID. keep trough <15. d/c zosyn. await forearm wound cx. check blood cx x2. continue with current HAART regimen. wound packing and care as per surgical team. Thank you for allowing me to take part in the care of this patient.
--- NOTE | 2017-11-10 11:19 | CP.PCM.PN ---
Subjective - Date & Time of Evaluation Date of Evaluation: 11/10/17 Time of Evaluation: 10:35 - Subjective Subjective: General Surgery Procedural Note- Dr. Conn Preop: left forearm abscess Postop: same Procedure: Incision and drainage of left forearm abscess Occ Therapist: Dr. Rodriguez, Dr. Llanes Description of procedure: Consent was obtained from patient. Time out was done. Patient left forearm was prepped with betadine. Local anesthesia was given consisting of 5 cc of 1% lidocaine plain in a local block fashion. Incision was made to the area of fluctanance to the left forearm with #15 blade. Incision was approximately 2cm. Purulence materials was expressed about 10 cc. Wound culture was taken. Abscess was flushed with normal saline solution. Surgical site was packed with 1/4" iodoform packing and dressed with 4x4 and kerlix. Hemostasis was achieved. Patient tolerated the procedure well with neurovascular status intact. No immediate complications Fermin Llanes DPM PGY-1 Plan: Packing will be removed tomorrow Continue abx per ID Dressing changes Objective - Vital Signs/Intake and Output Vital Signs (last 24 hours): Temp Pulse Resp BP Pulse Ox 97.3 F L 54 L 20 144/83 96 11/10/17 08:15 11/10/17 08:15 11/10/17 08:15 11/10/17 08:15 11/10/17 08:15 - Medications Medications: Current Medications Acetaminophen (Tylenol 325mg Tab) 650 mg PO Q6 PRN PRN Reason: Pain, Mild (1-3) Acetaminophen (Tylenol 325mg Tab) 650 mg PO Q6 PRN PRN Reason: Fever >100.4 F Efavirenz (Sustiva) 600 mg PO DAILY [facility] Last Admin: 11/10/17 09:03 Dose: 600 mg Emtricitabine/Tenofovir (Truvada 200 Mg-300 Mg) 1 tab PO DAILY [facility] Last Admin: 11/10/17 09:03 Dose: 1 tab Enalapril Maleate (Vasotec) 5 mg PO DAILY [facility] Vancomycin HCl 1 gm/ Sodium (Chloride) 250 mls @ 166.667 mls/hr IVPB Q12 JOAN PRN Reason: Protocol Piperacillin Sod/Tazobactam (Sod 3.375 gm/ Sodium Chloride) 100 mls @ 100 mls/ hr IVPB Q6 JOAN PRN Reason: Protocol Last Admin: 11/10/17 06:01 Dose: 100 mls/hr Ketorolac Tromethamine (Toradol) 30 mg IVP Q6 PRN PRN Reason: Pain, moderate (4-7) Last Admin: 11/10/17 05:55 Dose: 30 mg Oxycodone/Acetaminophen (Percocet 5/325 Mg Tab) 1 tab PO Q6 PRN PRN Reason: Pain, severe (8-10) Stop: 11/13/17 00:25 - Labs Labs: 11/10/17 09:00 11/09/17 23:35 PT 12.5 Seconds (9.8-13.1) 11/09/17 23:35 INR 1.1 (0.9-1.2) 11/09/17 23:35 APTT 32.3 Seconds (25.6-37.1) 11/09/17 23:35
[2017-11-10 11:47] LABS: BLOOD UREA NITROGEN 13 mg/dl (9-20); CALCIUM 8.6 mg/dL (8.4-10.2); GFR AFRICAN-AMERICAN > 60; GFR NON-AFRICAN AMERICAN > 60
[2017-11-10] MEDS ORDERED: Metoprolol 1 mg/ml Inj IVP STA (12:14)
--- NOTE | 2017-11-10 12:16 | CARD ---
APPROVED REPORT EKG Measurement Heart [id number] <Conclusion> Normal sinus rhythm Left axis deviation Abnormal ECG
[2017-11-10] MEDS ORDERED: Acetaminophen 650mg/20.3ml solution UD PO PRN (12:41)
--- NOTE | 2017-11-10 12:53 | PCM.RRT ---
SOCK LINING STITCHER Nurse Assessment - Situation SOCK LINING STITCHER Responder Arrival Time: 12:10 Location: [address] [place] [address] Room Number: [id number] SOCK LINING STITCHER Reason for Call: Tachycardia SOCK LINING STITCHER Called By: RN - IV IV Inserted during SOCK LINING STITCHER?: No IV Fluids Initiated During SOCK LINING STITCHER?: NS 1 L - Respiratory Oxygen Delivery Method: Nasal Cannula Received Nebulizer Treatments: No Was the Patient Ventilated with Bag/Mask 100% O2?: No Secretions Suctioned?: No Was the Patient Intubated?: No Was the Patient Placed on a Ventilator?: No - Medication Medications Administered During SOCK LINING STITCHER: Lopressor 5mg IVP. Adenosine 6mgIVP - Diagnostic Test Ordered EKG: Yes Chest X-Ray: No CT Scan: No - Stat Labs Ordered SOCK LINING STITCHER Stat Labs Ordered: CBC, BMP, TROPONIN SOCK LINING STITCHER Other Labs Ordered: Mg, Phos CPR started during SOCK LINING STITCHER?: No - Vital Signs Vital Signs: Rapid Response Vital Sign Blood Pressure 95/65 Pulse Rate 171 Respiratory Rate 17 Temperature 98.2 F Oxygen Saturation 98 - Time SOCK LINING STITCHER Ended Time SOCK LINING STITCHER Ended: 12:30 - Vital Signs at end of SOCK LINING STITCHER Vital Signs at end of SOCK LINING STITCHER: Rapid Response End Vital Sign Blood Pressure 103/64 Pulse Rate 57 Respiratory Rate 16 Temperature 98.2 F O2 Sat by Pulse Oximetry 100 - Recommendations SOCK LINING STITCHER Level of Care Recommendations: Remain in current setting Plan - Assessment of Findings&Treatment Plan SOCK LINING STITCHER called by RN due to tachycardia Patient 62 yo M with PMH of HIV, HTN, Hep C and IV drug use with tachycardia. Patient is awake and able to follow commands. Denies chest pain, sob, abdominal pain, no headache, dizziness, afebrile, no N/V, chills. Patient underwent bedside I&D in L forearm this morning for an abscess. No weakness, tingling or numbness. PE: VS: on arrival Blood Pressure 95/65 Pulse Rate 171 Respiratory Rate 17 Temperature 98.2 F Oxygen Saturation 98 Resp: cta b/l, normal breathing pattern. CVS: tachycardic, +s1 s2, no murmurs. ABD: soft, NT/ND, +BM No edema Neuro: alert, AAO x3, muscle strength 5/5, sensation intact. VS: at the end: Blood Pressure 103/64 Pulse Rate 57 Respiratory Rate 16 Temperature 98.2 F O2 Sat by Pulse Oximetry 100 A/P: 62 yo M patient admitted due to L forearm abscess with tachycardia. - troponin - Mg/Phos - EKG - NS bolus x1 - Lopressor 5 mg IV once - Adenosine 6 mg IV once - Patient remains in current setting
[2017-11-10] MEDS ORDERED: Magnesium Sulfate 2 gm/50 ml 2 GM/50 ML BAG IVPB ONE (13:35)
[2017-11-10] MEDS ORDERED: Potassium Phosphate 3 mmol/ml Inj IV ONE (13:35)
[2017-11-10] MEDS ORDERED: DEXTROSE IV NR (13:45)
[2017-11-10] MEDS ORDERED: WATER IV NR (13:45)
[2017-11-10] MEDS ORDERED: POTASSIUM PHOSPHATE IV NR (13:45)
--- NOTE | 2017-11-10 15:06 | CP.PCM.CON ---
History of Present Illness - History of Present Illness History of Present Illness: 62 YO M w/ PMH of HIV, IV drug use (heroin), HTN, Hep C is admitted for left forearm pain and swelling. He has been admitted for similar complaint in same region in the past. Patient states 5 days ago he was injecting heroin into his vein when he " hit a bad vein. " Since then the swelling and pain has been worsening. pt on evaluation was guarded and uncooperative, reported long use of heroin, uziel, IV and snorting, pt reported multiple admissions at [facility] for detox, denied any previous psychiatric hospitalizations or treatment , it is noted that pt had at least one psychiatric hospitalization in [facility] in 2016, pt denied any current psychiatric symptoms, denied any changes in sleep or appetite, denied psychotic symptoms denied suicidal or homicidal ideations urine toxicology positive for heroin and cocaine Past Patient History - Infectious Disease Hx of Infectious Diseases: None - Past Medical History & Family History Past Medical History?: Yes - Past Social History Drugs: Opiates - CARDIAC Hx Hypercholesterolemia: No Hx Hypertension: Yes - PULMONARY Hx Respiratory Disorders: No - NEUROLOGICAL Hx Seizures: No - HEENT Hx HEENT Problems: No - RENAL Hx Chronic Kidney Disease: No - ENDOCRINE/METABOLIC Hx Endocrine Disorders: No - HEMATOLOGICAL/ONCOLOGICAL Hx Human Immunodeficiency Virus (HIV): Yes - INTEGUMENTARY Hx Dermatological Problems: No - MUSCULOSKELETAL/RHEUMATOLOGICAL Hx Musculoskeletal Disorders: No - GASTROINTESTINAL Hx Gastrointestinal Disorders: No Hx Liver Failure: (Hepatitis C) - GENITOURINARY/GYNECOLOGICAL Hx Sexually Transmitted Disorders: No - PSYCHIATRIC Hx Psychophysiologic Disorder: Yes (Denies) Hx Substance Use: Yes (heroin, cocaine) - SURGICAL HISTORY Hx Surgeries: No - ANESTHESIA Hx Anesthesia: No Hx Anesthesia Reactions: No Hx Malignant Hyperthermia: No Meds Allergies/Adverse Reactions: Allergies Allergy/AdvReac Type Severity Reaction Status Date / Time No Known Allergies Allergy Verified 11/09/17 23:03 - Medications Medications: Current Medications Acetaminophen (Tylenol 325mg Tab) 650 mg PO Q6 PRN PRN Reason: Fever >100.4 F Acetaminophen (Tylenol 650mg/20.3ml Solution Ud) 1,000 mg PO Q6 PRN PRN Reason: Pain, Mild (1-3) Clonidine HCl (Catapres) 0.1 mg PO BID [facility] Efavirenz (Sustiva) 600 mg PO DAILY [facility] Last Admin: 11/10/17 09:03 Dose: 600 mg Emtricitabine/Tenofovir (Truvada 200 Mg-300 Mg) 1 tab PO DAILY [facility] Last Admin: 11/10/17 09:03 Dose: 1 tab Enalapril Maleate (Vasotec) 5 mg PO DAILY [facility] Last Admin: 11/10/17 12:56 Dose: 5 mg Vancomycin HCl 1 gm/ Sodium (Chloride) 250 mls @ 166.667 mls/hr IVPB Q12 JOAN PRN Reason: Protocol Last Admin: 11/10/17 12:01 Dose: 166.667 mls/hr Potassium Chloride/Dextrose/Sod Cl (Potassium Chl 20 Meq In D5-1/2ns) 1,000 mls @ 100 mls/hr IV .Q10H JOAN Stop: 11/11/17 12:40 Potassium Phosphate 10.5 mmole (/ Dextrose) 253.5 mls @ 125 mls/hr IV .Q2H2M NR Stop: 11/10/17 15:46 Ketorolac Tromethamine (Toradol) 30 mg IVP Q6 PRN PRN Reason: Pain, moderate (4-7) Last Admin: 11/10/17 05:55 Dose: 30 mg Metoclopramide HCl (Reglan) 10 mg IVP Q6 PRN PRN Reason: Nausea/Vomiting Oxycodone/Acetaminophen (Percocet 5/325 Mg Tab) 1 tab PO Q6 PRN PRN Reason: Pain, severe (8-10) Stop: 11/13/17 00:25 Physical Exam - Psychiatric Exam Additional comments: pt seen in bed, guarded evasive, poor historian, partial eye contact underproductive speech , mood reported fine affect constricted, thought form coherent, denied any current suicidal or homicidal ideations, denied perceptual disturbances, alert awake, ox3, poor insight and judgment Results - Vital Signs Recent Vital Signs: Last Vital Signs Temp 97.3 F L 11/10/17 09:00 Pulse 54 L 11/10/17 09:00 Resp 20 11/10/17 09:00 BP 144/83 11/10/17 09:00 Pulse Ox 96 11/10/17 09:00 - Labs Result Diagrams: 11/10/17 09:00 11/10/17 10:21 Labs: Laboratory Results - last 24 hr 11/09/17 11/09/17 11/09/17 23:35 23:35 23:35 WBC 11.2 H RBC 4.51 Hgb 13.2 Hct 38.4 MCV 85.3 MCH 29.4 MCHC 34.4 RDW 14.1 Plt Count 219 MPV 8.6 Neut % (Auto) 76.3 H Lymph % (Auto) 15.2 L [place] % (Auto) 6.9 Eos % (Auto) 0.6 Baso % (Auto) 1.0 Neut # (Auto) 8.5 H Lymph # (Auto) 1.7 [place] # (Auto) 0.8 Eos # (Auto) 0.1 Baso # (Auto) 0.1 PT 12.5 INR 1.1 APTT 32.3 pO2 VBG pH VBG pCO2 VBG HCO3 VBG Total CO2 VBG O2 Sat (Calc) VBG Base Excess VBG Potassium Glucose Lactate FiO2 Sodium 141 Potassium 3.7 Chloride 99 Carbon Dioxide 28 Anion Gap 18 BUN 15 Creatinine 0.8 Est GFR ( Amer) > 60 Est GFR (Non-Af Amer) > 60 POC Glucose (mg/dL) Random Glucose 95 Calcium 8.7 Phosphorus Magnesium Total Bilirubin 0.5 AST 42 ALT 41 Alkaline Phosphatase 95 Troponin I < 0.0120 Total Protein 7.4 Albumin 3.7 Globulin 3.7 Albumin/Globulin Ratio 1.0 Venous Blood Potassium Urine Color Urine Clarity Urine pH Ur Specific [place] Urine Protein Urine Glucose (UA) Urine Ketones Urine Blood Urine Nitrate Urine Bilirubin Urine Urobilinogen Ur Leukocyte Esterase Urine RBC (Auto) Urine Microscopic WBC Urine Opiates Screen Urine Methadone Screen Ur Barbiturates Screen Ur Phencyclidine Scrn Ur Amphetamines Screen U Benzodiazepines Scrn U Oth Cocaine Metabols U Cannabinoids Screen 11/09/17 11/10/17 11/10/17 23:45 00:20 00:20 WBC RBC Hgb Hct MCV MCH MCHC RDW Plt Count MPV Neut % (Auto) Lymph % (Auto) [place] % (Auto) Eos % (Auto) Baso % (Auto) Neut # (Auto) Lymph # (Auto) [place] # (Auto) Eos # (Auto) Baso # (Auto) PT INR APTT pO2 57 H VBG pH 7.46 H VBG pCO2 45 VBG HCO3 30.3 VBG Total CO2 33.4 H VBG O2 Sat (Calc) 95.3 H VBG Base Excess 7.1 H VBG Potassium 3.4 L Glucose 97 Lactate 0.6 L FiO2 21.0 Sodium 137.0 Potassium Chloride 104.0 Carbon Dioxide Anion Gap BUN Creatinine Est GFR ( Amer) Est GFR (Non-Af Amer) POC Glucose (mg/dL) Random Glucose Calcium Phosphorus Magnesium Total Bilirubin AST ALT Alkaline Phosphatase Troponin I Total Protein Albumin Globulin Albumin/Globulin Ratio Venous Blood Potassium 3.4 L Urine Color Yellow Urine Clarity Clear Urine pH 7.0 Ur Specific [place] 1.017 Urine Protein Negative Urine Glucose (UA) Neg Urine Ketones Negative Urine Blood Negative Urine Nitrate Negative Urine Bilirubin Negative Urine Urobilinogen 0.2-1.0 Ur Leukocyte Esterase Neg Urine RBC (Auto) 2 Urine Microscopic WBC 1 Urine Opiates Screen Positive H Urine Methadone Screen Negative Ur Barbiturates Screen Negative Ur Phencyclidine Scrn Negative Ur Amphetamines Screen Negative U Benzodiazepines Scrn Negative U Oth Cocaine Metabols Positive H U Cannabinoids Screen Negative 11/10/17 11/10/17 11/10/17 09:00 10:21 12:12 WBC 10.1 RBC 4.47 Hgb 13.1 Hct 38.5 MCV 86.1 MCH 29.3 MCHC 34.0 RDW 14.2 Plt Count 207 MPV 8.8 Neut % (Auto) 75.2 H Lymph % (Auto) 14.9 L [place] % (Auto) 7.4 Eos % (Auto) 1.4 Baso % (Auto) 1.1 Neut # (Auto) 7.6 H Lymph # (Auto) 1.5 [place] # (Auto) 0.7 Eos # (Auto) 0.1 Baso # (Auto) 0.1 PT INR APTT pO2 VBG pH VBG pCO2 VBG HCO3 VBG Total CO2 VBG O2 Sat (Calc) VBG Base Excess VBG Potassium Glucose Lactate FiO2 Sodium 143 Potassium 3.9 Chloride 103 Carbon Dioxide 28 Anion Gap 16 BUN 13 Creatinine 0.8 Est GFR ( Amer) > 60 Est GFR (Non-Af Amer) > 60 POC Glucose (mg/dL) 106 Random Glucose 109 Calcium 8.6 Phosphorus Magnesium Total Bilirubin AST ALT Alkaline Phosphatase Troponin I Total Protein Albumin Globulin Albumin/Globulin Ratio Venous Blood Potassium Urine Color Urine Clarity Urine pH Ur Specific [place] Urine Protein Urine Glucose (UA) Urine Ketones Urine Blood Urine Nitrate Urine Bilirubin Urine Urobilinogen Ur Leukocyte Esterase Urine RBC (Auto) Urine Microscopic WBC Urine Opiates Screen Urine Methadone Screen Ur Barbiturates Screen Ur Phencyclidine Scrn Ur Amphetamines Screen U Benzodiazepines Scrn U Oth Cocaine Metabols U Cannabinoids Screen 11/10/17 12:30 WBC RBC Hgb Hct MCV MCH MCHC RDW Plt Count MPV Neut % (Auto) Lymph % (Auto) [place] % (Auto) Eos % (Auto) Baso % (Auto) Neut # (Auto) Lymph # (Auto) [place] # (Auto) Eos # (Auto) Baso # (Auto) PT INR APTT pO2 VBG pH VBG pCO2 VBG HCO3 VBG Total CO2 VBG O2 Sat (Calc) VBG Base Excess VBG Potassium Glucose Lactate FiO2 Sodium Potassium Chloride Carbon Dioxide Anion Gap BUN Creatinine Est GFR ( Amer) Est GFR (Non-Af Amer) POC Glucose (mg/dL) Random Glucose Calcium Phosphorus 1.8 L Magnesium 1.2 L Total Bilirubin AST ALT Alkaline Phosphatase Troponin I < 0.0120 Total Protein Albumin Globulin Albumin/Globulin Ratio Venous Blood Potassium Urine Color Urine Clarity Urine pH Ur Specific [place] Urine Protein Urine Glucose (UA) Urine Ketones Urine Blood Urine Nitrate Urine Bilirubin Urine Urobilinogen Ur Leukocyte Esterase Urine RBC (Auto) Urine Microscopic WBC Urine Opiates Screen Urine Methadone Screen Ur Barbiturates Screen Ur Phencyclidine Scrn Ur Amphetamines Screen U Benzodiazepines Scrn U Oth Cocaine Metabols U Cannabinoids Screen Assessment & Plan - Assessment and Plan (Free Text) Assessment: cocaine use disorder opiate use disorder Plan: discussed with pt admission to voluntary unit psychiatry upon medical clearence to initiate referral to rehab, pt declined pt refusing referral to inpatient or outpatient rehab explained to pt risk of relapse on discharge with possible overdose due to decreased tolerance. pt continues to decline referrals to substance use treatment, inpatient or outpatient pt at current mental status denied suicidal or homicidal ideations pt psychiatricaly cleared for discharge upon medical clearence
[2017-11-10] MEDS: Potassium Ch 20mEq in D5-1/2NS 1,000 ML IV SCH ×2 (18:52→22:45)
[2017-11-10] MEDS ORDERED: diaZEpam 10 mg/2 ml Inj IVP ONE (19:54)
[2017-11-10] MEDS: Oxycodone/Acetaminophen 5/325 mg Tab PO PRN (21:20)
[2017-11-10] MEDS ORDERED: DiphenhydrAMINE 50 mg/ml Inj IVP ONE (22:46)
[2017-11-11 00:38] VITALS: RESP 20; O2SAT 98
[2017-11-11 06:36] LABS: ALBUMIN 3.2 g/dL (3.5-5.0); ALT/SGPT 36 U/L (21-72); AST/SGOT 27 U/L (17-59); BLOOD UREA NITROGEN 10 mg/dl (9-20); CALCIUM 8.2 mg/dL (8.4-10.2); GFR AFRICAN-AMERICAN > 60; GFR NON-AFRICAN AMERICAN > 60
[2017-11-11 06:37] LABS: BASO # 0.1 K/uL (0.0-0.2); EOS # 0.1 K/uL (0.0-0.7); EOS % 1.6 % (0.0-4.0); HEMOGLOBIN 12.9 g/dL (12.0-18.0); LYMPH # 1.7 K/uL (1.0-4.3); LYMPH % 20.9 % (20.0-40.0); MEAN CELL VOLUME 86.5 fl (80.0-94.0); MEAN CORPUSCULAR HEMOGLOBIN 29.4 pg (27.0-31.0); MEAN PLATELET VOLUME 8.7 fl (7.2-11.7); MONO # 0.6 K/uL (0.0-0.8); MONO % 7.6 % (0.0-10.0); NEUT # 5.7 K/uL (1.8-7.0); NEUT % 68.9 % (50.0-75.0); RBC 4.38 Mil/uL (4.40-5.90); RED CELL DISTRIBUTION WIDTH 14.4 % (11.5-14.5); WHITE BLOOD COUNT 8.2 K/uL (4.8-10.8)
--- NOTE | 2017-11-11 07:57 | CP.PCM.PN ---
Subjective - Date & Time of Evaluation Date of Evaluation: 11/11/17 Time of Evaluation: 07:54 - Subjective Subjective: SURGERY NOTE FOR DR. JUAN 62M seen and examined at bedside. Patient states pain in left forearm improved. Denies fevers, chills. Objective - Vital Signs/Intake and Output Vital Signs (last 24 hours): Temp Pulse Resp BP Pulse Ox 98.3 F 58 L 20 128/76 98 11/10/17 19:50 11/10/17 19:50 11/10/17 19:50 11/10/17 19:50 11/10/17 19:50 Intake and Output: 11/11/17 11/11/17 06:59 18:59 Intake Total 1450 Output Total 900 Balance 550 - Medications Medications: Current Medications Acetaminophen (Tylenol 325mg Tab) 650 mg PO Q6 PRN PRN Reason: Fever >100.4 F Acetaminophen (Tylenol 650mg/20.3ml Solution Ud) 1,000 mg PO Q6 PRN PRN Reason: Pain, Mild (1-3) Clonidine HCl (Catapres) 0.1 mg PO BID [facility] Last Admin: 11/10/17 17:21 Dose: 0.1 mg Efavirenz (Sustiva) 600 mg PO DAILY [facility] Last Admin: 11/10/17 09:03 Dose: 600 mg Emtricitabine/Tenofovir (Truvada 200 Mg-300 Mg) 1 tab PO DAILY [facility] Last Admin: 11/10/17 09:03 Dose: 1 tab Enalapril Maleate (Vasotec) 5 mg PO DAILY [facility] Last Admin: 11/10/17 12:56 Dose: 5 mg Vancomycin HCl 1 gm/ Sodium (Chloride) 250 mls @ 166.667 mls/hr IVPB Q12 [facility] PRN Reason: Protocol Last Admin: 11/10/17 21:22 Dose: 166.667 mls/hr Potassium Chloride/Dextrose/Sod Cl (Potassium Chl 20 Meq In D5-1/2ns) 1,000 mls @ 100 mls/hr IV .Q10H [facility] Stop: 11/11/17 12:40 Last Admin: 11/10/17 22:45 Dose: Not Given Ibuprofen (Motrin Tab) 600 mg PO Q6 PRN PRN Reason: Pain, moderate (4-7) Last Admin: 11/10/17 17:20 Dose: 600 mg Loperamide HCl (Imodium) 2 mg PO QID PRN PRN Reason: Diarrhea Metoclopramide HCl (Reglan) 10 mg IVP Q6 PRN PRN Reason: Nausea/Vomiting Oxycodone/Acetaminophen (Percocet 5/325 Mg Tab) 1 tab PO Q6 PRN PRN Reason: Pain, severe (8-10) Stop: 11/13/17 00:25 Last Admin: 11/10/17 21:20 Dose: 1 tab - Labs Labs: 11/11/17 05:45 11/11/17 05:45 PT 12.5 Seconds (9.8-13.1) 11/09/17 23:35 INR 1.1 (0.9-1.2) 11/09/17 23:35 APTT 32.3 Seconds (25.6-37.1) 11/09/17 23:35 - Constitutional Appears: Well, Non-toxic, No Acute Distress - Respiratory Exam Respiratory Exam: Clear to Ausculation Bilateral, NORMAL BREATHING PATTERN - Cardiovascular Exam Cardiovascular Exam: REGULAR RHYTHM, +S1, +S2 - GI/Abdominal Exam GI & Abdominal Exam: Soft. absent: Distended, Firm, Guarding, Rigid, Tenderness , Rebound - Extremities Exam Additional comments: left arm abscess drained Incision still open and slightly draining - Neurological Exam Neurological Exam: Alert, Awake - Skin Skin Exam: Dry, Intact, Normal Color, Warm Assessment and Plan - Assessment and Plan (Free Text) Assessment: 62M s/p left arm I&D of abscess POD#1 Plan: Dressing changed Packing removed No further surgical intervention Further recs discuss with Dr. Fabien Browning, PGY2
[2017-11-11] MEDS: Oxycodone/Acetaminophen 5/325 mg Tab PO PRN (08:10)
[2017-11-11] MEDS: Emtricitabine-Tenofovir 200 mg-300 mg Tab PO SCH (08:11)
[2017-11-11 08:12] VITALS: BP 158/87; PULSE 98
[2017-11-11 08:34] VITALS: TEMP 97.8
--- NOTE | 2017-11-11 09:56 | CP.PCM.PN ---
Subjective - Date & Time of Evaluation Date of Evaluation: 11/11/17 Time of Evaluation: 12:00 - Subjective Subjective: went to see pt. was told pt. left AMA . Objective - Vital Signs/Intake and Output Vital Signs (last 24 hours): Temp Pulse Resp BP Pulse Ox 97.8 F 98 H 20 158/87 H 98 11/11/17 08:34 11/11/17 08:34 11/11/17 08:34 11/11/17 08:34 11/11/17 08:34 Intake and Output: 11/11/17 11/11/17 06:59 18:59 Intake Total 1450 Output Total 900 Balance 550 - Medications Medications: Current Medications Acetaminophen (Tylenol 325mg Tab) 650 mg PO Q6 PRN PRN Reason: Fever >100.4 F Acetaminophen (Tylenol 650mg/20.3ml Solution Ud) 1,000 mg PO Q6 PRN PRN Reason: Pain, Mild (1-3) Clonidine HCl (Catapres) 0.1 mg PO BID [facility] Last Admin: 11/11/17 08:11 Dose: 0.1 mg Efavirenz (Sustiva) 600 mg PO DAILY [facility] Last Admin: 11/11/17 08:11 Dose: 600 mg Emtricitabine/Tenofovir (Truvada 200 Mg-300 Mg) 1 tab PO DAILY [facility] Last Admin: 11/11/17 08:11 Dose: 1 tab Enalapril Maleate (Vasotec) 5 mg PO DAILY [facility] Last Admin: 11/11/17 08:11 Dose: 5 mg Vancomycin HCl 1 gm/ Sodium (Chloride) 250 mls @ 166.667 mls/hr IVPB Q12 [facility] PRN Reason: Protocol Last Admin: 11/11/17 08:17 Dose: 166.667 mls/hr Potassium Chloride/Dextrose/Sod Cl (Potassium Chl 20 Meq In D5-1/2ns) 1,000 mls @ 100 mls/hr IV .Q10H [facility] Stop: 11/11/17 12:40 Last Admin: 11/10/17 22:45 Dose: Not Given Ibuprofen (Motrin Tab) 600 mg PO Q6 PRN PRN Reason: Pain, moderate (4-7) Last Admin: 11/10/17 17:20 Dose: 600 mg Loperamide HCl (Imodium) 2 mg PO QID PRN PRN Reason: Diarrhea Metoclopramide HCl (Reglan) 10 mg IVP Q6 PRN PRN Reason: Nausea/Vomiting Oxycodone/Acetaminophen (Percocet 5/325 Mg Tab) 1 tab PO Q6 PRN PRN Reason: Pain, severe (8-10) Stop: 11/13/17 00:25 Last Admin: 11/11/17 08:10 Dose: 1 tab - Labs Labs: 11/11/17 05:45 11/11/17 05:45 PT 12.5 Seconds (9.8-13.1) 11/09/17 23:35 INR 1.1 (0.9-1.2) 11/09/17 23:35 APTT 32.3 Seconds (25.6-37.1) 11/09/17 23:35 Assessment and Plan (1) Abscess of left forearm Status: Acute (2) IV drug abuse Status: Chronic (3) HIV (human immunodeficiency virus infection) Status: Acute (4) Hepatitis C Status: Chronic
--- NOTE | 2017-11-11 12:29 | CARD ---
APPROVED REPORT EKG Measurement Heart [id number] <Conclusion> Sinus bradycardia Left axis deviation Septal infarct, age undetermined Abnormal ECG
--- NOTE | 2017-11-11 21:27 | CP.PCM.DIS ---
Provider - Provider Date of Admission: 11/10/17 15:58 Attending physician: Dipti Calixto MD Consults: Surgery: Dr Conn. ID: Dr Ham. Time Spent in preparation of Discharge (in minutes): 30 Diagnosis - Discharge Diagnosis (1) Abscess of left forearm Status: Acute Hospital Course - Lab Results Lab Results: Micro Results 11/10/17 11:17 Arm - Left Gram Stain - Final 11/10/17 11:17 Arm - Left Wound Culture - Preliminary Gram Negative Khari 11/10/17 00:20 Urine,Clean Catch Urine Culture - Final No Growth (<1,000 CFU/ML) 11/09/17 23:35 Blood-Venous Blood Culture - Preliminary NO GROWTH AFTER 24 HOURS 11/09/17 23:20 Blood-Venous Blood Culture - Preliminary NO GROWTH AFTER 24 HOURS Most Recent Lab Values WBC 8.2 K/uL (4.8-10.8) 11/11/17 05:45 RBC 4.38 Mil/uL (4.40-5.90) L 11/11/17 05:45 Hgb 12.9 g/dL (12.0-18.0) 11/11/17 05:45 Hct 37.9 % (35.0-51.0) 11/11/17 05:45 MCV 86.5 fl (80.0-94.0) 11/11/17 05:45 MCH 29.4 pg (27.0-31.0) 11/11/17 05:45 MCHC 34.0 g/dL (33.0-37.0) 11/11/17 05:45 RDW 14.4 % (11.5-14.5) 11/11/17 05:45 Plt Count 197 K/uL (130-400) 11/11/17 05:45 MPV 8.7 fl (7.2-11.7) 11/11/17 05:45 Neut % (Auto) 68.9 % (50.0-75.0) 11/11/17 05:45 Lymph % (Auto) 20.9 % (20.0-40.0) 11/11/17 05:45 [place] % (Auto) 7.6 % (0.0-10.0) 11/11/17 05:45 Eos % (Auto) 1.6 % (0.0-4.0) 11/11/17 05:45 Baso % (Auto) 1.0 % (0.0-2.0) 11/11/17 05:45 Neut # (Auto) 5.7 K/uL (1.8-7.0) 11/11/17 05:45 Lymph # (Auto) 1.7 K/uL (1.0-4.3) 11/11/17 05:45 [place] # (Auto) 0.6 K/uL (0.0-0.8) 11/11/17 05:45 Eos # (Auto) 0.1 K/uL (0.0-0.7) 11/11/17 05:45 Baso # (Auto) 0.1 K/uL (0.0-0.2) 11/11/17 05:45 PT 12.5 Seconds (9.8-13.1) 11/09/17 23:35 INR 1.1 (0.9-1.2) 11/09/17 23:35 APTT 32.3 Seconds (25.6-37.1) 11/09/17 23:35 pO2 57 mm/Hg (30-55) H 11/09/17 23:45 VBG pH 7.46 (7.32-7.43) H 11/09/17 23:45 VBG pCO2 45 mmHg (40-60) 11/09/17 23:45 VBG HCO3 30.3 mmol/L 11/09/17 23:45 VBG Total CO2 33.4 mmol/L (22-28) H 11/09/17 23:45 VBG O2 Sat (Calc) 95.3 % (40-65) H 11/09/17 23:45 VBG Base Excess 7.1 mmol/L (0.0-2.0) H 11/09/17 23:45 VBG Potassium 3.4 mmol/L (3.6-5.2) L 11/09/17 23:45 Sodium 137.0 mmol/L (132-148) 11/09/17 23:45 Chloride 104.0 mmol/L (98-107) 11/09/17 23:45 Glucose 97 mg/dL (75-110) 11/09/17 23:45 Lactate 0.6 mmol/L (0.7-2.1) L 11/09/17 23:45 FiO2 21.0 % 11/09/17 23:45 Sodium 144 mmol/l (132-148) 11/11/17 05:45 Potassium 3.8 MMOL/L (3.6-5.0) 11/11/17 05:45 Chloride 105 mmol/L (98-107) 11/11/17 05:45 Carbon Dioxide 28 mmol/L (22-30) 11/11/17 05:45 Anion Gap 15 (10-20) 11/11/17 05:45 BUN 10 mg/dl (9-20) 11/11/17 05:45 Creatinine 0.7 mg/dl (0.8-1.5) L 11/11/17 05:45 Est GFR ( Amer) > 60 11/11/17 05:45 Est GFR (Non-Af Amer) > 60 11/11/17 05:45 POC Glucose (mg/dL) 106 mg/dL (65-110) 11/10/17 12:12 Random Glucose 131 mg/dL (75-110) H 11/11/17 05:45 Calcium 8.2 mg/dL (8.4-10.2) L 11/11/17 05:45 Phosphorus 3.1 mg/dl (2.5-4.5) 11/11/17 05:45 Magnesium 2.5 MG/DL (1.6-2.3) H 11/11/17 05:45 Total Bilirubin 0.4 mg/dl (0.2-1.3) 11/11/17 05:45 AST 27 U/L (17-59) 11/11/17 05:45 ALT 36 U/L (21-72) 11/11/17 05:45 Alkaline Phosphatase 90 U/L (38-126) 11/11/17 05:45 Troponin I < 0.0120 ng/mL (0.00-0.120) 11/11/17 05:45 Total Protein 6.6 G/DL (6.3-8.2) 11/11/17 05:45 Albumin 3.2 g/dL (3.5-5.0) L 11/11/17 05:45 Globulin 3.4 gm/dL (2.2-3.9) 11/11/17 05:45 Albumin/Globulin Ratio 1.0 (1.0-2.1) 11/11/17 05:45 Venous Blood Potassium 3.4 mmol/L (3.6-5.2) L 11/09/17 23:45 Urine Color Yellow (YELLOW) 11/10/17 00:20 Urine Clarity Clear (Clear) 11/10/17 00:20 Urine pH 7.0 (5.0-8.0) 11/10/17 00:20 Ur Specific [place] 1.017 (1.003-1.030) 11/10/17 00:20 Urine Protein Negative mg/dL (NEGATIVE) 11/10/17 00:20 Urine Glucose (UA) Neg mg/dL (Normal) 11/10/17 00:20 Urine Ketones Negative mg/dL (NEGATIVE) 11/10/17 00:20 Urine Blood Negative (NEGATIVE) 11/10/17 00:20 Urine Nitrate Negative (NEGATIVE) 11/10/17 00:20 Urine Bilirubin Negative (NEGATIVE) 11/10/17 00:20 Urine Urobilinogen 0.2-1.0 mg/dL (0.2-1.0) 11/10/17 00:20 Ur Leukocyte Esterase Neg [place]/uL (Negative) 11/10/17 00:20 Urine RBC (Auto) 2 /hpf (0-3) 11/10/17 00:20 Urine Microscopic WBC 1 /hpf (0-5) 11/10/17 00:20 Urine Opiates Screen Positive (NEGATIVE) H 11/10/17 00:20 Urine Methadone Screen Negative (NEGATIVE) 11/10/17 00:20 Ur Barbiturates Screen Negative (NEGATIVE) 11/10/17 00:20 Ur Phencyclidine Scrn Negative (NEGATIVE) 11/10/17 00:20 Ur Amphetamines Screen Negative (NEGATIVE) 11/10/17 00:20 U Benzodiazepines Scrn Negative (NEGATIVE) 11/10/17 00:20 U Oth Cocaine Metabols Positive (NEGATIVE) H 11/10/17 00:20 U Cannabinoids Screen Negative (NEGATIVE) 11/10/17 00:20 - Hospital Course Hospital Course: 62 yo M w/ PMH of HIV, IV drug use (heroin), HTN, Hep C was admitted for left forearm abscess. Surgery on board, bedside I&D on 11/10/17. ID on board. Same day of procedure [employer] was called due to tachycardia. Afebrile during admission. IV Vancomycin started. Blood and urine cx negative, wound cx pending. Will monitor. Patient left hospital AMA. Discharge Exam - Head Exam Head Exam: NORMAL INSPECTION - Eye Exam Eye Exam: EOMI, PERRL - Respiratory Exam Respiratory Exam: Clear to PA & Lateral, NORMAL BREATHING PATTERN - Cardiovascular Exam Cardiovascular Exam: REGULAR RHYTHM, +S1, +S2 - GI/Abdominal Exam GI & Abdominal Exam: Normal Bowel Sounds, Soft. absent: Tenderness - Extremities Exam Additional comments: L forearm swelling and erythema in the medial aspect, tender to palpation, radial pulse present 2+. Dressing clean and intact. - Neurological Exam Neurological exam: Alert, CN II-XII Intact, Oriented x3 Discharge Plan - Follow Up Plan Condition: STABLE Disposition: AGAINST MEDICAL ADVICE Instructions: Boil (DC), Abscess Incision and Drainage (DC), Drug Abuse and Drug Addiction (DC), HIV/AIDS (DC) Additional Instructions: f/u with Dr Conn in 1-2 weeks Wound care ER precautions Referrals: Mo Conn MD [Staff Provider] -
[2017-11-12 08:54] LABS: % CD4 (T HELPER CELL) 28 Percent (30-61); % CD8 (SUPPRESSOR T CELL) 43 Percent (12-42); ABSOLUTE CD4 CELLS 441 Cells/mcL (490-1740); ABSOLUTE CD8 CELLS 666 Cells/mcL (180-1170); ABSOLUTE LYMPHOCYTES 1555 Cells/mcL (850-3900); HELPER/SUPPRESSOR RATIO 0.66 Ratio (0.86-5.00)
== END 2017-11-11 10:21 | disposition left against medical advice (07) | DRG 713 ==
LOC: H.ER 22:59 → H.ERHOLD 23:37 → H.MEDSURG1 11-10 03:26 → OBSVTOIN 11-10 15:58
PROVIDERS: ADMIT Family Medicine Geriatric Medicine; ATTEND Family Medicine Geriatric Medicine
PROC: 0H9CXZZ Drainage of Left Upper Arm Skin, External Approach (ICD-10-PCS; principal; 2017-11-10)
DX: L02.414 Cutaneous abscess of left upper limb (principal); Z21 Asymptomatic human immunodeficiency virus [HIV] infection status; B96.1 Klebsiella pneumoniae [K. pneumoniae] as the cause of diseases classified elsewhere; B18.2 Chronic viral hepatitis C; F11.10 Opioid abuse, uncomplicated; F14.10 Cocaine abuse, uncomplicated; L03.114 Cellulitis of left upper limb; I10 Essential (primary) hypertension; Z91.14 Patient's other noncompliance with medication regimen; Z59.0 Homelessness

== ENCOUNTER 2017-11-12 09:41 | Emergency (ER) | payer MEDICAID ==
[2017-11-12 09:41] VITALS: BMI 21.9
[2017-11-12 10:08] VITALS: BP 111/71; PULSE 69; RESP 20; TEMP 98; O2SAT 100
== END 2017-11-12 11:20 | disposition left against medical advice (07) ==
LOC: H.ER 09:41
DX: Z02.89 Encounter for other administrative examinations (principal)